=== PATIENT | female | born 1930 | race African-American/Black ===

== ENCOUNTER 2016-10-10 13:44 | Inpatient (IN) | payer MEDICARE, MEDICAID ==
[~2016-10-10] VITALS: Ht 162.6 cm; Wt 81.6 kg
[2016-10-10 15:11] VITALS: BP 146/86; BMI 30.9
[2016-10-10] MEDS ORDERED: LASIX40 MG PO (15:39)
[2016-10-10] MEDS ORDERED: METOPROLOL TART25 MG PO (15:39)
[2016-10-10] MEDS ORDERED: KLOR-CON M2020 MEQ PO (15:40)
--- NOTE | 2016-10-10 16:36 | NUR ---
BEDSIDE NURSING SWALLOW EVALUATION COMPLETED. THIN LIQUID TRIED, PATIENT SWALLOWED WITHOUT DIFFICULTY, NO COUGHING. 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 NO SIGNS OF ASPIRATION. NO COUGHING. NO SIGNS OF DISTRESS.
--- NOTE | 2016-10-10 18:40 | NUR ---
SAID TO GIVE 60MG OF LOVENOX AT 2100. NOTIFIED THAT I GAVE HER 40MG OF LOVENOX AT 1730. HE STATED "GIVE THE 60MG TONIGHT ANYWAYS." I STATED "TONIGHT AT 2100?" HE STATED "YES."
[2016-10-10 19:00] VITALS: BP 136/80
--- NOTE | 2016-10-10 19:35 | NUR ---
PATIENT RESTING IN BED AND DENIES NEEDS AT THIS TIME. ASSESSMENT AND VITALS COMPLETED. BED IN LOWEST POSITION AND CALL LIGHT WITHIN REACH. ENCOURAGED THE PATIENT TO CALL IF SHE HAS NEEDS.
--- NOTE | 2016-10-10 20:05 | NUR ---
ASSISTED PATIENT ON AND OFF OF THE BEDPAN.
--- NOTE | 2016-10-10 20:16 | NUR ---
SPOKE WITH SPENCER, LABORER CHEMICAL PROCESSING ABOUT PULLING LOVENOX FOR PATIENT.
--- NOTE | 2016-10-10 22:30 | NUR ---
SPOKE WITH CADENCE FOOD SERVICE EMPLOYEE ABOUT PULLING 60MG LOVENOX.
[2016-10-11] VITALS (7 sets, daily range): BP systolic 131–148; BP diastolic 82–113; Ht 162.6 cm; Wt 81.6 kg
[2016-10-11 15:08] LABS: ANION GAP 15.1 mmol/L (8-16); CARBON DIOXIDE 24.4 mmol/L (21.0-32.0); CREATININE - SERUM 0.9 mg/dL (0.6-1.3); POTASSIUM - SERUM 3.5 mmol/L (3.5-5.1)
--- NOTE | 2016-10-11 21:16 | NUR ---
PATIENT RESTING IN BED. ALERT AND ORIENTED. NO SIGNS OF DISTRESS NOTED. SCHEDULED MEDS GIVEN. SHIFT ASSESSMENT COMPLETED. DENIES ANY NEEDS AT THIS TIME. BED LOW. CALL LIGHT IN REACH
[2016-10-12 04:00] VITALS: BP 146/83
[2016-10-12 05:51] LABS: EOSINOPHILS 2.3 % (0-7); HEMATOCRIT 38.6 % (36.0-48.0); HEMOGLOBIN 12.6 g/dL (12-16); IMMATURE GRANULOCYTES 0.2 % (0-5); LYMPHOCYTES 31.8 % (15-50); MCH 28.7 pg (26.0-34.0); MCHC 32.6 g/dL (31.0-37.0); MCV 87.9 fL (80.0-100.0); MEAN PLATELET VOLUME 11.6 fL (7.4-10.4); MONOCYTES 11.9 % (2-11); NEUTROPHILS 52.8 % (40-80); PLATELET COUNT 249 10x3/uL (130-400); RBC 4.39 10x6/uL (4.00-5.40); RDW 13.9 % (11.5-14.5)
[2016-10-12 06:09] LABS: ANION GAP 14.1 mmol/L (8-16); CALCIUM 9.4 mg/dL (8.5-10.1); CARBON DIOXIDE 24.5 mmol/L (21.0-32.0); CREATININE - SERUM 0.8 mg/dL (0.6-1.3); POTASSIUM - SERUM 3.6 mmol/L (3.5-5.1)
[2016-10-12 08:16] VITALS: BP 157/86
--- NOTE | 2016-10-12 09:40 | NUR ---
Rehab Note- Acute Rehab Prescreen order received. The patient has [employer] insurance and will need a Pre Auth prior to an acute rehab screen. Will begin the Pre Auth process. Thank you for this referral! Ammy Campbell RN Clinical Liaison, [facility] Rehab/[place]
--- NOTE | 2016-10-12 11:14 | NUR ---
Rehab Note- Have started the Pre Auth process with [facility]. Have faxed clinicals for Alley Olmstead to review at [phone]. Reference #[id number]. Will await review and determiniation of acute rehab stay approval. Will continue to follow the patient at this time. Ammy Campbell RN Clinical Liaison, [facility] Rehab/[place]
[2016-10-12 11:48] VITALS: BP 134/74
--- NOTE | 2016-10-12 13:39 | EC ---
PATIENT:AMINAH AYALA DATE OF SERVICE: 10/10/16 SEX: F MEDICAL RECORD: [id number] DATE OF : 32 LOCATION:[facility] AGE OF PATIENT: 86 ADMISSION DATE: 10/10/16 REFERRING PHYSICIAN: INTERPRETING PHYSICIAN: REHAN REINA MD ECHOCARDIOGRAM REPORT ECHO CHARGES 4 ECHO COMPLETE CLINICAL DIAGNOSIS: CVA ECHOCARDIOGRAPHIC MEASUREMENTS (adult normal given) AC root (d.<3.7cm) 3.3 LV Septum d (<1.2 cm> 1.4 Valve Excursion 0.5 LV Septum (systole) 1.8 Left Atria (s.<4.0cm> 4.0 LVPW d(<1.2cm) 1.2 RV (d.<2.3cm) 2.4 LVPW (sytole) 1.8 LV diastole(<5.6CM) 4.5 MV E-F(>70mm/sec) LV systole 3.0 LVOT Diameter 1.7 MV exc.(>10mm) Est.ejection fraction (50-75%) Pericardial Effusion N DOPPLER: LVIT A E 189.0 LA RVSP 44.1 LVOT 70.0 AOP1/2T Asc. Ao 381 RVOT 78.0 RA PA 95.0 AV Gradient Peak 58.1 AV Mean 30.0 AV Area 0.3 MV Gradient Peak 13.1 MV Mean 5.4 MV Area COMMENTS: Tank Cleaner: Shira MCGOWAN ALTURAS Planting Machine Crewman:Migue Gay TAPE# PACS DATE OF SERVICE: 10/10/2016 Adequate 2D echo, color flow, spectral Doppler, and M-mode. LVH is present. LV internal dimensions are normal. Wall motion is normal. EF is greater than 55%. Aortic valve is calcified with restriction of leaflet motion. Peak gradient of 58 mmHg, putting this in moderate to severe range. The left atrium is normal at 4.0 cm. Mitral valve is thickened. Moderate MR. Right-sided chamber is grossly normal. Moderate TR. TRANSINT:[id number] Voice Confirmation ID: [id number] DOCUMENT ID: [id number] ECHOCARDIOGRAM REPORT [id number] AMINAH AYALA 10/12/2016 Edited to correct date of service, dmm. REHAN REINA MD at 1339 CC: [id number] DICTATION DATE: 10/11/16 0939 SUMMER ASSOCIATE: 10/11/16 1122 ADM IN [facility] [address] [place] [address]
[2016-10-12 15:20] VITALS: BP 155/110
--- NOTE | 2016-10-12 16:54 | NUR ---
OT NOTE: PT COMPLETED RUE PROM FOR INCREASED AROM. PT COMPLETED POSITIONING WITH MOD/MAX A . PT COMPLETED GROOMING TASK WITH MIN A. THANK YOU, HAI CHAVES/Zak
[2016-10-12 19:00] VITALS: BP 145/101
[2016-10-13] VITALS: BP 142/92
--- NOTE | 2016-10-13 03:25 | NUR ---
AIDS IN ROOM CLEANING PT UP FROM BOWEL MOVEMENT. PT HAS NO NEEDS AT THIS TIME. SIDE RAILS ARE UP X 2. BED IS IN LOWEST POSITION. CALL LIGHT IS WITHIN REACH.
[2016-10-13 04:00] VITALS: BP 131/87
[2016-10-13 05:21] LABS: BASOPHILS 0.6 % (0-2); EOSINOPHILS 1.6 % (0-7); HEMATOCRIT 39.2 % (36.0-48.0); HEMOGLOBIN 12.7 g/dL (12-16); IMMATURE GRANULOCYTES 0.3 % (0-5); LYMPHOCYTES 20.3 % (15-50); MCH 28.5 pg (26.0-34.0); MCHC 32.4 g/dL (31.0-37.0); MCV 87.9 fL (80.0-100.0); MEAN PLATELET VOLUME 11.8 fL (7.4-10.4); MONOCYTES 13.1 % (2-11); NEUTROPHILS 64.1 % (40-80); PLATELET COUNT 242 10x3/uL (130-400); RBC 4.46 10x6/uL (4.00-5.40); RDW 13.8 % (11.5-14.5); WBC 6.8 10x3/uL (4.8-10.8)
[2016-10-13 05:43] LABS: ALBUMIN 3.1 g/dL (3.4-5.0); ANION GAP 11.7 mmol/L (8-16); BILIRUBIN - TOTAL 0.8 mg/dL (0.2-1.3); CARBON DIOXIDE 25.7 mmol/L (21.0-32.0); CREATININE - SERUM 0.8 mg/dL (0.6-1.3); POTASSIUM - SERUM 3.4 mmol/L (3.5-5.1); PROTEIN - SERUM 7.6 g/dL (6.4-8.2)
[2016-10-13 07:55] VITALS: BP 133/89
--- NOTE | 2016-10-13 08:24 | NUR ---
AWAKE AND ALERT. ORIENTED TO SELF. DIFFICULT TO ASSESS ORIENTATION THOUGHTS GET JUMBLED UP. SHE CAN GIVE AN APPROPRIATE ANSWER AFTER A TIME. LUNGS ARE CLEAR BUT DIMINISHED THROUGHOUT, OCCASSIONAL DRY COUGH NOTED. SKIN IS INTACT WITHOUT REDNESS. IV TO LEFT HAND IS PATENT WTIHOUT REDNESS AT INSERTION SITE. BREAKFAST TRAY AT BEDSIDE BUT PATIENT REFUSED TO EAT EVEN WITH ASSIST. ALSO REFUSED OFFERS OF ALTERNATIVE MEALS. ASSISTED WITH MENU CHOICES PER STAFF.
--- NOTE | 2016-10-13 09:50 | NUR ---
Patient Name: AMINAH AYALA Admission Status: Elective Accout number: [id number] Admission Date: 10-10-2016 : 1932 Admission Diagnosis:CEREBRAL INFARCTION, UNSPECIFIED Attending: VENKAT Current LOS: 3 Anticipated DC Date: 10-14-2016 Planned Disposition: Inpatient Rehab Facility Primary Insurance: [employer] MEDICARE ADV Discharge Planning Comments: CM MET WITH PATIENT REGARDING D/C NEEDS AND PLANS. PATIENT STATED SHE LIVES WITH HER DAUGHTER (SOL) AND SHE WILL DRIVE HER HOME AT DISCHARGE. PATIENT STATED SHE HAS NO STEPS OR STAIRS AT HER HOME. PATIENTS PCP IS DR. MONTES AT [place] AND PHARMACY IS [facility]. PATIENT STATED SHE IS INDEPENDENT WITH HER CARE AND HAS A WALKER, WHEELCHAIR, SHOWER CHAIR, AND BS COMMODE AT HER HOME. PATIENT HAS AN IP REHAB REFERRAL. IF PATIENT IS NOT ACCEPTED TO IP REHAB SHE WILL CHOOSE A SNF AT THAT TIME. CM WILL CONTINUE TO FOLLOW PATIENT WITH D/C NEEDS AND PLANS. PCP DR. MONTES IN [facility] [phone] SOL WATSON (DAUGHTER) [phone] Maintenance Manager: Marion Kebede Is the patient Alert and Oriented? Yes 0 * How many steps to enter\exit or inside your home? 2 0 * PCP DR. MONTES IN [facility] 0 * Pharmacy [facility] [phone] * Preadmission Environment Home with Family 0 * ADLs Independent 0 * Equipment Bedside Commode Shower Chair Walker Wheelchair 0 * List name and contact numbers for known caregivers / representatives who currently or will assist patient after discharge: SOL WATSON (DAUGHTER) [phone] * Community resources currently utilized None 0 * Additional services required to return to the preadmission environment? Yes 0 * Can the patient safely return to the preadmission environment? Yes 0 * Has this patient been hospitalized within the prior 30 days at any hospital? No 0 Grand Total: 0
--- NOTE | 2016-10-13 10:02 | NUR ---
ASSISTED WITH BEDPAN. HAD LARGE SOFT BM. SKIN CARE PER STAFF. REPOSITIONED IN BED FOR COMFORT. DENIES NEEDS.
[2016-10-13 11:17] VITALS: BP 129/86
--- NOTE | 2016-10-13 12:53 | NUR ---
ATE ONLY A SMALL AMOUNT OF LUNCH PER FAMILY. REQUESTED AND GIVEN 650MG TYLENOL PO FOR C/O RIGHT ARM, BACK AND STOMACH PAIN LEVEL 9. WILL MONITOR.
[2016-10-13 14:55] VITALS: BP 128/74
--- NOTE | 2016-10-13 15:00 | NUR ---
RESTING QUIETLY IN BED AFTER WORKING WITH PT. REPORTS PAIN IMPROVED WITH USE OF TYLENOL.
--- NOTE | 2016-10-13 16:05 | NUR ---
CM REASSESSMENT NOTE: PATIENT IS DISCHARGING TODAY TO IP REHAB AND FAMILY HAS BEEN NOTIFIED.
--- NOTE | 2016-10-13 16:33 | NUR ---
OT NOTE: PT COMPLETED RUE PROM TO FACILITATE FUNCTIONAL RETURN. PT COMPLETED RUE RIGOBERTO POSITIONING TO MAINTAIN JOINT INTEGRITY. PT COMPLETED BED MOB WITH VIKTOR [place] THANK YOU, HAI CHAVES/Zak
[2016-10-13] MEDS ORDERED: LIPITOR40 MG PO (17:06)
[2016-10-13] MEDS ORDERED: XARELTO10 MG PO (17:11)
--- NOTE | 2016-10-13 18:12 | NUR ---
REPORT CALLED TO [facility]. ALL QUESTIONS ANSWERED. PATIENT AND DAUGHTER SIGNED D/C PAPERS FOR REHAB. SL TO LEFT HAND D/C WITH CATHETER INTACT. TRANSFERRED TO ROOM 1117A VIA .
== END 2016-10-13 18:13 | DRG 65 ==
LOC: D.MS 13:44
PROVIDERS: Family Medicine; ADMIT Family Medicine
DX: I63.512 Cerebral infarction due to unspecified occlusion or stenosis of left middle cerebral artery (principal); G81.91 Hemiplegia, unspecified affecting right dominant side; R47.02 Dysphasia; I10 Essential (primary) hypertension; I48.91 Unspecified atrial fibrillation; I25.10 Atherosclerotic heart disease of native coronary artery without angina pectoris; R40.2143 Coma scale, eyes open, spontaneous, at hospital admission; R40.2363 Coma scale, best motor response, obeys commands, at hospital admission; R40.2253 Coma scale, best verbal response, oriented, at hospital admission; I65.22 Occlusion and stenosis of left carotid artery

== ENCOUNTER 2016-10-13 19:13 | Inpatient (IN) | payer MEDICARE, MEDICAID ==
[~2016-10-13] VITALS: Ht 162.6 cm; Wt 76.2 kg
--- NOTE | 2016-10-13 11:15 | NUR ---
PT INCONTINENCE, CHANGE PINK PAD AND LINEN.
--- NOTE | 2016-10-13 18:25 | NUR ---
recieved on rehab/wc,room 1119F.CL IN REACH.
[~2016-10-13 19:13] MED LIST: KLOR-CON M2020 MEQ PO; LASIX40 MG PO; LIPITOR40 MG PO; METOPROLOL TART25 MG PO; XARELTO10 MG PO
--- NOTE | 2016-10-14 00:15 | NUR ---
DAUGHTER ACCOMPANY WITH PT AT BEDSIDE.
[2016-10-14 00:24] VITALS: BMI 28.9
--- NOTE | 2016-10-14 00:45 | NUR ---
ADMISSION ASSESSMENT COMPLETE. PATIENT DENIES NEEDS. DAUGHTER STAYING WITH PATIENT FOR SAFETY REASONS.
--- NOTE | 2016-10-14 03:41 | NUR ---
PT REST QUIETLY IN BED, EYE CLOSE, BED LOW,CALL LIGHT WITHIN REACH.
--- NOTE | 2016-10-14 04:59 | NUR ---
PT INCONTINENCE, HAS WATERLY STOOL, GOWN AND LINEN CHANGED.
[2016-10-14 05:35] LABS: BASOPHILS 0.3 % (0-2); EOSINOPHILS 1.2 % (0-7); HEMATOCRIT 40.2 % (36.0-48.0); HEMOGLOBIN 13.2 g/dL (12-16); IMMATURE GRANULOCYTES 0.4 % (0-5); LYMPHOCYTES 21.5 % (15-50); MCH 28.8 pg (26.0-34.0); MCHC 32.8 g/dL (31.0-37.0); MCV 87.8 fL (80.0-100.0); MEAN PLATELET VOLUME 11.6 fL (7.4-10.4); MONOCYTES 10.7 % (2-11); NEUTROPHILS 65.9 % (40-80); PLATELET COUNT 243 10x3/uL (130-400); RBC 4.58 10x6/uL (4.00-5.40); RDW 13.8 % (11.5-14.5); WBC 7.4 10x3/uL (4.8-10.8)
[2016-10-14 05:48] LABS: ANION GAP 14.8 mmol/L (8-16); CALCIUM 9.4 mg/dL (8.5-10.1); CARBON DIOXIDE 21.9 mmol/L (21.0-32.0); CREATININE - SERUM 0.8 mg/dL (0.6-1.3); POTASSIUM - SERUM 3.7 mmol/L (3.5-5.1)
--- NOTE | 2016-10-14 06:47 | NUR ---
RESTING QUIETLY IN BED CALL LIGHT IN REACH
[2016-10-14 10:36] VITALS: BP 136/93
[2016-10-14 11:02] VITALS: Ht 162.6 cm; Wt 76.2 kg
--- NOTE | 2016-10-14 12:55 | NUR ---
SITTING IN W/C IN ROOM EATING LUNCH. USES LUE TO FEED SELF. DENIES NEEDING ANY ASST.
--- NOTE | 2016-10-14 14:41 | NUR ---
RESTING QUIETLY IN ROOM.
--- NOTE | 2016-10-14 17:53 | NUR ---
SITTING UP IN BED EAT IN SUPPER. DENIES NEEDS OR C/O. CALL LIGHT IN REACH
[2016-10-14 19:10] VITALS: BP 132/64
--- NOTE | 2016-10-14 19:45 | NUR ---
ASSISTED PT TO BATHROOM AND BACK TO BED.
--- NOTE | 2016-10-15 01:08 | NUR ---
PT REST QUIETLY IN BED, EYE CLOSE, BED LOW.
[2016-10-15 07:56] VITALS: BP 110/86
--- NOTE | 2016-10-15 14:15 | NUR ---
RESTING QUIETLY IN BED. FAMILY AT BEDSIDE TALKING WITH PT. GUTIERREZ FLACCID, RLE WEAK. CAN WALK WITH WALKER AND MIN ASST. STILL CONFUSED.
[2016-10-15 19:27] VITALS: BP 126/84
--- NOTE | 2016-10-15 19:50 | NUR ---
PT. IN BED WITH HOB UP FOR COMFORT. ASSESSMENT COMPLETED. PT. REPOSITIONED TO GET HER UP IN THE BED AND REPOSITIONED TO COMFORT WITH PILLOW UNDER RUE FOR SUPPORT AND PT. ALSO REQUESTED A PILLOW UNDER HER LEFT UPPER THIGH/BUTTOCK AREA. NO VOICED NEEDS AT THIS TIME AND CALL LIGHT WITHIN REACH.
--- NOTE | 2016-10-15 23:15 | NUR ---
PT. FOUND SUPINE ON FLOOR WITH FEET FACING THE WALL. ASSESSED FOR ANY VISIBLE INJURY AND NONE FOUND. PT. DENIES ANY NEW PAIN. CHANGED OUT BEDS SO THAT PT. WILL BE IN A BED WITH A BUILT-IN BED ALARM. PT. TRANSFERRED FROM FLOOR TO BED BY 2 MHT'S AND NO INJURIES OBSERVED. PT. POSITIONED TO COMFORT, RE-ORIENTED USE OF CALL LIGHT. PT. ABLE TO CORRECTLY USE CALL LIGHT WITHOUT PROBLEM.
--- NOTE | 2016-10-16 01:35 | NUR ---
PT. REQUESTING SOMETHING FOR PAIN IN HER RIGHT SHOULDER. THIS PAIN IS NEW PT. SAYS IN THIS AREA. XRAYS WILL BE ORDERED. EXPLAINED TO PT. THE PURPOSE FOR THE XRAYS AND PT. UNDERSTANDS. ALSO AT THIS POINT PT. HAS NO PAIN MEDICATION ORDERS. CALL LIGHT WITHIN REACH.
--- NOTE | 2016-10-16 02:30 | NUR ---
RADIOLOGY TECHS HAVE BEEN UP TWICE TO GET SHOULDER XRAYS AND HAVE NOW TAKEN HER TO THE RADIOLOGY DEPT. TO GET THE XRAYS COMPLETED.
--- NOTE | 2016-10-16 03:05 | NUR ---
PT. IN BED WITH HOB UP FOR COMFORT WITH EYES CLOSED AND RESP. EVEN. CALL LIGHT WITHIN REACH.
--- NOTE | 2016-10-16 06:38 | NUR ---
PT. IN BED LYING ON HER RIGHT SIDE WITH EYES CLOSED AND RESP. EVEN. CALL LIGHT IS WITHIN REACH.
--- NOTE | 2016-10-16 08:00 | NUR ---
SHIFT ASSMT COMPLETED.DENIES NEEDS.RE-INSTRUCTED TO USE CALL LIGHT FOR ASSISTANCE.BREAKFAST GIVEN.ALARM ON.
[2016-10-16 09:28] VITALS: BP 138/87
--- NOTE | 2016-10-16 12:00 | NUR ---
EATING LUNCH.CL IN REACH.ALARM ON.
--- NOTE | 2016-10-16 16:00 | NUR ---
FAMILY VISITING.CL IN REACH.
[2016-10-16 19:28] VITALS: BP 132/86
--- NOTE | 2016-10-16 20:00 | NUR ---
PT IN BED WITH HOB UP FOR COMFORT. WATCHING TV. NO 02. NO IV. TELEMETRY. MEDS WHOLE IN APPLESAUCE. RIGHT ARM FLACCID. RL EXT. WEAK. MIN. ASSIT. CONTINENT. PT STATES SHE HAS A PAIN LEVEL OF 9/10 IN HER KNEE. BED ALARM AND HEATHER ALARM ON. BED IN LOWEST POSITION AND CALL LIGHT WITHIN REACH.
--- NOTE | 2016-10-17 | NUR ---
PT IN BED WITH HOB UP FOR COMFORT. EYES CLOSED. CHEST RISING AND FALLING. BED IN LOWEST POSITION AND CALL LIGHT WITHIN REACH.
--- NOTE | 2016-10-17 03:30 | NUR ---
pt standing at side of bed, alarm sounding, pt not sure of why she is standing at bed when asked, directly asked pt if she needed to void and she stated yes. pt did check to see w/c was locked prior to transfer. pt sba assist with toilet transfer, incontinent of urine.
--- NOTE | 2016-10-17 08:00 | NUR ---
SHIFT ASSMT COMPLETED.DENIES NEEDS.POS UP OOB TO WC FOR BREAKFAST.MEAL SET-UP GIVEN.ALARM ON.
[2016-10-17 08:18] VITALS: BP 118/84
--- NOTE | 2016-10-17 09:58 | RHP ---
PATIENT: AMINAH AYALA MEDICAL RECORD: [id number] ACCOUNT: [id number] LOCATION:[id number] : 32 ADMISSION DATE: 10/13/16 REHABILITATION HISTORY AND PHYSICAL EXAMINATION POST ADMISSION PHYSICIAN EXAMINATION DATE OF ADMISSION: 10/13/2016 ADMITTING DIAGNOSES: Left middle cerebral artery infarct. HISTORY OF PRESENT ILLNESS: The patient is an 86-year-old gentleman admitted to the inpatient rehab with a left middle cerebral artery infarct. She was transferred from [facility] with a right hemiparesis. PCP spoke with the ER doctor who reported head CT was initially negative. The patient clinically with acute CVA and right hemispheric involvement. Daughter reports no history of CVA, though she does have coronary artery disease and status post coronary artery bypass grafting, history of hypertension and arrhythmia, but not known to be but could be AFib, not on any blood thinners or even aspirin. She did see cardiology at [facility] last week and had a heart cath, which was clean. She is supposed to have an ablation done in [place] at [facility] later next month. Daughter reports that before this a.m., she was fully independent with ADLs and mobility. Currently, she is awake and cooperative. She demonstrates a predominantly expressive dysphagia. She has problems with word finding, mostly monosyllabic speech errors, but comprehension is nicely intact. Her tongue and palate are midline. Sensation is relatively spared, but hypoesthesia of the right as well. Power is 0/5 in the right upper extremity, 3/5 in the right lower extremity. She plans to return back home with her daughter, hopefully after discharge. COMORBIDITIES: In this patient include oropharyngeal dysphagia, Broca aphasia, right hemiparesis, expressive dysphagia, coronary artery disease, essential hypertension, atrial fibrillation, acute CVA and carotid stenosis. PAST MEDICAL HISTORY: Significant for problems with of hard of hearing. He has got a history of hypertension, open-heart surgery and constipation. PAST SURGICAL HISTORY: Includes hysterectomy, right knee surgery, open-heart surgery, hysterectomy and CABG. ALLERGIES: PENICILLIN, TOBRAMYCIN, COZAAR AND MELOXICAM. CURRENT MEDICATIONS: Include Xarelto 10 mg daily, furosemide 40 mg daily. She is on Lipitor 40 mg daily, potassium 20 mEq b.i.d., Lopressor 12.5 mg b.i.d., polyethylene glycol 17 g in 8 ounces of water daily as needed. HABITS: No alcohol or tobacco use. FAMILY HISTORY: Noncontributory. SOCIAL HISTORY: The patient hopes to return back home once again with her daughter. REVIEW OF SYSTEMS: Difficult to obtain. GENERAL: She does complain of weakness and fatigue. HEENT: Denies cold, cough, or congestion. CARDIOVASCULAR: Denies any chest pain. HISTORY AND PHYSICAL [id number] LUCYAMINAH PHYSICAL EXAMINATION: VITAL SIGNS: Stable, afebrile. GENERAL: Elderly female in no acute distress, alert upon exam. HEENT: Normocephalic, atraumatic. Mucosa moist. NECK: Supple, with no lymphadenopathy. LUNGS: Clear at this time. HEART: Irregular rate and rhythm. ABDOMEN: Benign. EXTREMITIES: No clubbing, cyanosis or edema. NEUROLOGIC: She does have weakness in the right upper extremity greater than her lower extremity. LABORATORY DATA: Her white count is 7.4, H&H of 13 and 40, and platelet count was noted to be 243. Sodium is 140, potassium 3.7, BUN and creatinine of 13 and 0.8 and blood sugar is noted to be 128. ASSESSMENT: This is an 86-year-old female patient admitted to rehab with a working diagnosis of left middle cerebral artery infarct with complications of Broca aphasia. The patient has potential to make improvement. We instituted the following multidisciplinary therapies including, but not limited to, physical, occupational, respiratory, speech, nutritional services, prosthetics and orthotics. Given her complex condition and risk for more complications, rehabilitation services cannot be provided at a lower level of care such as a shelter facility. PLAN: 1. Admit to [facility] rehab for intensive inpatient therapy to include the following disciplines: A. Physical therapy to improve gait, all transfer skills and bed mobility to a modified independent level. B. Occupational therapy to improve activities of daily living to a modified independent level. C. Case management to assist with discharge planning and placement options. E. Rehabilitation nursing to assist in monitoring the patient's underlying medical conditions and to assist with any type of bowel or bladder management. 2. The patient's current medication and medical care will be continued. 3. The patient will be placed on standard fall precautions. 4. We will work with strength in her upper extremity and hopefully get her back to her daughter who will be her main caregiver after this. TRANSINT:[id number] Voice Confirmation ID: [id number] DOCUMENT ID: [id number] DAVI notes whether there has been none or any medical/functional change since admission: - DAVI attests patient continues to be appropriate for IRF: - HISTORY AND PHYSICAL [id number] AMINAH AYALA SCOTT MD at 0958 CC: [id number] DICTATION DATE: 10/14/16 0859 ELEVATOR ADJUSTER: 10/14/16 1208 ADM IN [place] [id number] [place] [address]
--- NOTE | 2016-10-17 12:00 | NUR ---
UP TO SIDE OF BED FOR MEAL.CL IN REACH.
[2016-10-17 20:00] VITALS: BP 122/92
--- NOTE | 2016-10-17 20:00 | NUR ---
PT IN BED WITH HOB UP FOR COMFORT. VISITORS IN ROOM. NO 02. NO IV. TELEMETRY. MEDS WHOLE IN APPLESAUCE. RIGHT ARM FLACCID. RL EXT. WEAK. MIN. ASSIT. CONTINENT. PAIN LEVEL OF 9/10 IN BACK FROM FALL. BED ALARM AND HEATHER ALARM ON. BED IN LOWEST POSITION AND CALL LIGHT WITHIN REACH.
--- NOTE | 2016-10-17 23:26 | NUR ---
PT. IN BED WITH HOB SLIGHTLY ELEVATED. EYES ARE CLOSED AND RESP. EVEN. CALL LIGHT WITHIN REACH.
--- NOTE | 2016-10-18 | NUR ---
PT IN BED WITH HOB UP FOR COMFORT. RESTING QUIETLY. CHEST RISING AND FALLING. BED IN LOWEST POSITION AND CALL LIGHT WITHIN REACH.
--- NOTE | 2016-10-18 04:00 | NUR ---
PT IN BED WITH HOB UP FOR COMFORT. RESTING QUIETLY. RESPIRATIONS EVEN AND UNLABORED. BED IN LOWEST POSITION AND CALL LIGHT WITHIN REACH.
[2016-10-18 07:05] LABS: BASOPHILS 0.6 % (0-2); EOSINOPHILS 2.2 % (0-7); HEMATOCRIT 41.1 % (36.0-48.0); HEMOGLOBIN 13.8 g/dL (12-16); IMMATURE GRANULOCYTES 0.5 % (0-5); LYMPHOCYTES 29.4 % (15-50); MCH 29.6 pg (26.0-34.0); MCHC 33.6 g/dL (31.0-37.0); MONOCYTES 14.5 % (2-11); NEUTROPHILS 52.8 % (40-80); PLATELET COUNT 258 10x3/uL (130-400); RBC 4.67 10x6/uL (4.00-5.40); RDW 13.8 % (11.5-14.5); WBC 6.5 10x3/uL (4.8-10.8)
[2016-10-18 07:20] LABS: ANION GAP 16.3 mmol/L (8-16); CALCIUM 9.7 mg/dL (8.5-10.1); CREATININE - SERUM 0.8 mg/dL (0.6-1.3); POTASSIUM - SERUM 4.3 mmol/L (3.5-5.1)
--- NOTE | 2016-10-18 07:49 | NUR ---
PT UP EATING BREAKFAST, DENIES NEEDS.
[2016-10-18 07:51] VITALS: BP 135/92
--- NOTE | 2016-10-18 10:44 | NUR ---
PATIENT IN REHAB ROOM. WORKING WITH OCCUPATIONAL THERAPIST. C/O OF BACK PAIN. PRN NORCO GIVEN.
--- NOTE | 2016-10-18 12:56 | NUR ---
PATIENT MOVED TO ROOM 1113A. CLOSER TO NURSING STATION DUE TO PATIENTS CONFUSION.
--- NOTE | 2016-10-18 15:22 | NUR ---
PATIENT HAS VISITORS IN ROOM. TURNED SUPERVISOR GRIPS LIGHT FOR PATIENT AND STATED THAT PATIENT NEEDED TO USE THE BATHROOM. THIS NURSE HELPED PATIENT TO THE BATHROOM. MOD ASST FROM BED TO TOILET. PATIENT NEEDED SOME HELP PULLING DOWN PANTS AND BRIEFS.
--- NOTE | 2016-10-18 17:50 | NUR ---
PATIENT SITTING UP IN WHEELCHAIR AT BEDSIDE TO EAT SUPPER. HEATHER ALARM ON.
--- NOTE | 2016-10-18 19:25 | NUR ---
PT RECEIVED SITTING ON SIDE OF BED BEGINNING TO LYE DOWN. NO CONCERNS NOTED. CALL LIGHT IN REACH.
[2016-10-18 22:18] VITALS: BP 108/62
--- NOTE | 2016-10-19 00:33 | NUR ---
PT IN BED WITH EYES CLOSED AND CHEST RISING. NO SIGN/SYMPTOMS OF DISTRESS NOTED. CALL LIGHT IN REACH. WILL CONTINUE TO OBSERVE.
--- NOTE | 2016-10-19 02:25 | NUR ---
PT IN BED WITH EYES CLOSED AND CHEST RISING. NO CONCERNS NOTED. CALL LIGHT IN REACH.
--- NOTE | 2016-10-19 06:43 | NUR ---
PT IN BED WITH EYES OPEN. VOICES PAIN TO BACK AT 8/10 WITH PRN PAIN MEDICATION GIVEN PER JUL. NO OTHER CONCERNS NOTED. CALL LIGHT IN REACH.
--- NOTE | 2016-10-19 07:17 | NUR ---
INTRODUCED SELF TO PT, PT STATES NO NEEDS AT THIS TIME, REHAN CONTINUE TO MONITOR, CALL LIGHT WITHIN REACH.
--- NOTE | 2016-10-19 08:08 | NUR ---
PT EATING BREAKFAST, DENIES NEEDS. CL IN REACH.
[2016-10-19 08:24] VITALS: BP 113/62
[2016-10-19 08:33] VITALS: BP 108/58
--- NOTE | 2016-10-19 09:43 | NUR ---
MORNING MEDICATION GIVEN, PT TOLERATED WELL, ASSISTED PT TO RESTROOM AND BACK TO BED WITH MIN TO MOD ASSISTANCE, WILL CONTINUE TO MONITOR, CALL LIGHT WITHIN REACH.
--- NOTE | 2016-10-19 12:10 | NUR ---
PT SITTING AT BEDSIDE IN WHEELCHAIR VISITING WITH FAMILY, PT STATES NO NEEDS AT THIS TIME, WILL CONTINUE TO MONITOR, CALL LIGHT WITHIN REACH.
--- NOTE | 2016-10-19 13:45 | NUR ---
PT RESTING IN BED, RESPIRATIONS EVEN, FAMILY AT BEDSIDE, WILL CONTINUE TO MONITOR, CALL LIGHT WITHIN REACH.
--- NOTE | 2016-10-19 15:01 | NUR ---
NUTRITION MONITORING & EVAL CHART REVIEWED. PT IN THERAPY. 75% INTAKE REG DIET. ENSURE WITH MEALS. RD FOLLOWING
[2016-10-19 18:54] VITALS: BP 111/58
--- NOTE | 2016-10-19 19:30 | NUR ---
PT RECEIVED IN BED WITH EYES CLOSED AND CHEST RISING. EASILY AROUSED TO VERBAL STIMULI. NO CONCERNS OR COMPLAINTS AT THIS TIME. CALL LIGHT IN REACH.
--- NOTE | 2016-10-19 23:00 | NUR ---
PT IN BED WITH EYES CLOSED AND CHEST RISING. NO SIGN/SYMPTOMS OF DISTRESS NOTED. CALL LIGHT IN REACH.
--- NOTE | 2016-10-20 02:27 | NUR ---
PT IN BED WITH EYES CLOSED AND CHEST RISING. NO CONCERNS NOTED. CALL LIGHT IN REACH.
--- NOTE | 2016-10-20 07:30 | NUR ---
UP OOB TO BATHROOM.CL IN REACH.ALARMS SET.
--- NOTE | 2016-10-20 08:15 | NUR ---
PT UP IN BED EATING BREAKFAST TOLERATING WELL WILL MONITER
--- NOTE | 2016-10-20 11:01 | NUR ---
PATIENT ADMITTED TO REHAB FROM ACUTE FLOOR. PATIENT PCP IS DR. MONTES IN [place]. SHE HAS A WALKER, WHEELCHAIR, SHOWER CHAIR AND BEDSIDE COMMODE.[facility] IS HER PHARMACY. SHE LIVES WITH HER DAUGHTER, SOL AND SHE WILL DISCHARGE BACK HOME WITH HER. TENATIVE DISCHARGE DATE IS 11/01/16. WILL CONTINUE TO FOLLOW WITH PATIENT
--- NOTE | 2016-10-20 16:49 | NUR ---
PT RESTING IN BED WITH EYES OPEN CALL LIGHT IN REACH NO PROBLEMS WILL MONITER
--- NOTE | 2016-10-20 19:20 | NUR ---
SET OFF BED ALARM ATTEMPTING OOB. ASSISTED HER UP TO BR COMMODE TO URINATE, AND THEN BACK TO BED. REMINDED HER TO USE THE CALL LIGHT AND NOT TO ATTEMPT UP BY HERSELF. SR UP X3. INTERNAL BED ALARM AND HEATHER ALARMS ARE ARMED DUE TO THE SPEED WITH WHICH PATIENT GETS UP WHEN INTERNALLY MOTIVATED. REMAINS VERY UNSAFE DUE TO IMPAIRED GAIT, IMPAIRED COGNITION AND FLACCID RIGHT ARM.
--- NOTE | 2016-10-20 21:15 | NUR ---
RESTING IN BED, EYES CLOSED.
[2016-10-20 22:15] VITALS: BP 117/81
--- NOTE | 2016-10-20 22:15 | NUR ---
ASSISTED PATIENT UP TO BR SHE REPORTED URGENCY WHEN I ENTERED HER ROOM. ON RETURN TO BED ASSESSMENT AND HS MEDS WERE COMPLETED.
--- NOTE | 2016-10-21 00:10 | NUR ---
PATIENT AWAKE. DENIES NEEDS.
--- NOTE | 2016-10-21 02:15 | NUR ---
FOUND PATIENT AWAKE ON ROUNDS. SAYS SHE NEEDS TO, "GET UP AND GET OUT OF HERE." DENIES NEEDS TO TOILET. REMINDED HER SHE IS IN THE HOSPITAL AND ALSO THE EARLY HOUR. SR REMAINS UP X3 WITH INTERNAL BED ALARM AND HEATHER BED ALARM ARMED.
--- NOTE | 2016-10-21 04:45 | NUR ---
IN BED, EYES CLOSED. RESTING QUIETLY.
--- NOTE | 2016-10-21 06:20 | NUR ---
ASSISTED PATIENT UP TO BR TO URINATE AND SUBSEQUENTLY TO CHANGE HER GOWN TO PANTS AND A TOP. INITIALLY FOUND PATIENT IN BED WITH GOWN STRIPPED OFF AND NECK LANYARD FOR TELEMETRY UNIT POUCH UNTIED AND LYING LOOSELY IN HER BED. ON COMPLETION OF TOILETING AND DRESSING, PATIENT WAS RETURNED TO BED. HOB UP 30 DEGREES. INTERNAL BED- AND HEATHER BED ALARMS ARE ARMED WITH SR UP X3 FOR SAFETY. WATER AND CALL LIGHT ARE IN REACH.
--- NOTE | 2016-10-21 08:15 | NUR ---
PT RESTING IN BED WITH EYES OPEN CALL LIGHT IN REACH NO PROBLEMS WILL MONITER
--- NOTE | 2016-10-21 11:30 | NUR ---
IN THERAPY,SLEEPY BUT SHANTA.
--- NOTE | 2016-10-21 11:56 | NUR ---
CLINICALS FAXED TO [facility] AT , AUTH. # [id number] WITH CONFORMATION RECIEVED
[2016-10-21 11:58] VITALS: BP 122/69
--- NOTE | 2016-10-21 15:33 | NUR ---
PT RESTING IN BED WITH EYES OPEN CALL LIGHT IN REACH WILL MONITER
[2016-10-21 19:30] VITALS: BP 106/72
--- NOTE | 2016-10-21 20:00 | NUR ---
PT IN BED WITH HOB UP FOR COMFORT. RESTING QUIETLY. TV ON. NO 02. NO IV. TELEMETRY. MEDS WHOLE IN APPLESAUCE. RIGHT ARM FLACCID. RIGHT LEG WEAK. BED AND HEATHER ALARM. BED IN LOWEST POSITION AND CALL LIGHT WITHIN REACH.
--- NOTE | 2016-10-22 | NUR ---
PT IN BED WITH HOB UP FOR COMFORT. EYES CLOSED. CHEST RISING AND FALLING. BED IN LOWEST POSITION AND CALL LIGHT WITHIN REACH.
--- NOTE | 2016-10-22 01:05 | NUR ---
MONITORING STATION CALLED TO REPORT PATIENT OFF MONITOR. REPLACED 2 ELECTRODE PATCHES. NOW BACK ON MONITOR. CONTINUES IN [facility].
--- NOTE | 2016-10-22 05:15 | NUR ---
ASSISTED PT WITH SHOWER.
[2016-10-22 08:36] VITALS: BP 132/78
--- NOTE | 2016-10-22 09:02 | NUR ---
PT AM MEDS ADMINISTERED. PT DENIES NEEDS.
--- NOTE | 2016-10-22 09:45 | NUR ---
PT REQ AND REC'D PRN PAIN MEDICATION WHILE IN THERAPY. WCTM.
--- NOTE | 2016-10-22 13:50 | NUR ---
PT PARTICIPATING IN THERAPY. TOLERATING WELL. DENIES NEEDS.
--- NOTE | 2016-10-22 19:35 | NUR ---
PT RECEIVED IN BED WITH EYES OPEN WATCHING TV. NO COMPLAINTS OR CONCERNS NOTED. CALL LIGHT IN REACH.
--- NOTE | 2016-10-22 22:49 | NUR ---
PT IN BED WITH EYES OPEN WATCHING TV. RECEIVED HS MEDICATIONS WITHOUT DIFFICULTY. NO CONERNS NOTED. CALL LIGHT IN REACH.
[2016-10-22 23:09] VITALS: BP 105/70
--- NOTE | 2016-10-22 23:44 | NUR ---
[employer] INSTRUMENT MAKER CALLED AND STATED PT HAD A RUN OF 6 VTACH, IS BACK IN NORMAL RHYTHM. PT AWAKE, DENIES ANY CHEST PALPITATIONS, SOB, OR FEELING ANY DIFFERENT.
--- NOTE | 2016-10-23 03:05 | NUR ---
PT IN BED WITH EYES OPEN WATCHING TV. NO CONCERNS OR COMPLAINTS MADE KNOWN AT THIS TIME. CALL LIGHT IN REACH.
--- NOTE | 2016-10-23 05:57 | NUR ---
PT IN BED WATCHING TV. NO COMPLAINTS OR CONCERNS NOTED. CALL LIGHT IN REACH.
[2016-10-23 08:00] VITALS: BP 124/80
--- NOTE | 2016-10-23 08:03 | NUR ---
PATIENT IS PLEASANTLY CONFUSED. RESTING IN BED. CALL LIGHT WITHIN REACH. BED ALARM ON. TELEMETRY IN PLACE
--- NOTE | 2016-10-23 10:13 | NUR ---
PATIENT HELPED TO BATHROOM. MOD ASST FROM BED TO WHEELCHAIR AND WHEELCHAIR ONTO TOILET. PATIENT NEEDED HELP WITH PULLING UP PANTS.
--- NOTE | 2016-10-23 11:30 | NUR ---
PATIENT RESTING IN BED. LIGHTS OUT. EYES CLOSED. BED ALARM ON. CALL LIGHT WITHIN REACH. ABLE TO SEE PATIENT FROM NURSING STATION
--- NOTE | 2016-10-23 12:41 | NUR ---
PT UP EATING LUNCH, DENIES NEEEDS.
--- NOTE | 2016-10-23 17:28 | NUR ---
PATIENT SITTING UP FOR SUPPER. HEATHER ALARM IN WHEELCHAIR, ON. CALL LIGHT WITHIN REACH
--- NOTE | 2016-10-23 20:57 | NUR ---
PT RECEIVED IN BED WITH EYE OPEN VISITING WITH GRANDDAUGHTER. NO COMPLAINTS OR CONCERNS NOTED AT THIS TIME. CALL LIGHT IN REACH.
[2016-10-23 22:11] VITALS: BP 104/71
--- NOTE | 2016-10-23 23:26 | NUR ---
PT IN BED WITH EYES CLOSED AND CHEST RISING. NO SIGN/SYMPTOMS OF DISTRESS NOTED. CALL LIGHT IN REACH.
--- NOTE | 2016-10-24 03:38 | NUR ---
PT IN BED WITH EYES CLOSED AND CHEST RISING. NO CONCERNS NOTED AT THIS TIME. CALL LIGHT IN REACH.
--- NOTE | 2016-10-24 06:11 | NUR ---
PT IN BED WITH EYES CLOSED AND CHEST RISING. NO CONCERNS NOTED AT THIS TIME. CALL LIGHT IN REACH.
--- NOTE | 2016-10-24 07:42 | NUR ---
PATIENT CONFUSED. ALERT/ORIENT TO SELF ONLY. BED/CHAIR ALARM ON AT ALL TIMES. CALL LIGHT WITHIN REACH. RESTING WELL, EYES SHUT
[2016-10-24 08:00] VITALS: BP 128/87
--- NOTE | 2016-10-24 09:59 | NUR ---
PATIENT SAT UP FOR BREAKFAST. THIS NURSE HELPED PATIENT WITH DENTURES. BOTTOM AND TOP. CHAIR ALARM ON WHILE PATIENT IN WHEELCHAIR TO EAT. AFTER BREAKFAST THIS NURSE HELPED PATIENT TO BATHROOM. PATIENT IS CONT OF B/B. PATIENT REQUESTED DENTURES TAKEN OUT. PATIENT REQUESTED TO GO BACK TO BED. THIS NURSE HELPED PATIENT BACK TO BED. MIN TO MOD ASST FROM WHEELCHAIR TO BED. BED ALARM ON
--- NOTE | 2016-10-24 11:52 | NUR ---
FAMILY INTO VISIT WITH PATIENT. PATIENT GOTTEN UP FOR LUNCH. SITTING IN THE WHEELCHAIR AT BEDSIDE.
--- NOTE | 2016-10-24 14:20 | NUR ---
PATIENT: L MCA INFRACT. RIGHT ARM FLACCID. PATIENT STRONGER IN TRANSFERS/AMBULATION.
--- NOTE | 2016-10-24 19:41 | NUR ---
WI RECEIVED IN BED WITH EYES CLOSED AND CHEST RISING. EASILY AROUSED TO VERBAL STIMULI. NO CONCERNS NOTED AT THIS TIME. CALL LIGHT IN REACH.
[2016-10-24 19:56] VITALS: BP 113/73
--- NOTE | 2016-10-25 | NUR ---
PT IN BED WITH HOB UP FOR COMFORT. EYES CLOSED. RESPIRATIONS EVEN AND UNLABORED. BED IN LOWEST POSITION AND CALL LIGHT WITHIN REACH.
--- NOTE | 2016-10-25 00:15 | NUR ---
PT IN BED WITH EYES CLOSED AND CHEST RISING. ASSISTED TO BATHROOM WITH MIN ASSIST. NO OTHER NEEDS MADE KNOWN. CALL LIGHT IN REACH.
--- NOTE | 2016-10-25 01:15 | NUR ---
PT GETTING OUT OF BED, ALARM SOUNDING, PT APPEARS TO BE DISREGARDING THE ALARM, MOD ASSIST WITH PATIENT FROM LYING TO SITTING UP IN BED, PT DEMONSTRATES LEFT ARM NEGLECT, UPON CUE, PT REPOSITIONS ARM. TRANSFERED FROM BED TO W/C WITH MIN ASSIST AND VERBAL CUES. VOIDED WITHOUT DIFFICULTY.
--- NOTE | 2016-10-25 03:02 | NUR ---
PT IN BED WITH EYES CLOSED AND CHEST RISING. NO CONCERNS NOTED. CALL LIGHT IN REACH.
[2016-10-25 06:56] LABS: BASOPHILS 0.6 % (0-2); EOSINOPHILS 2.6 % (0-7); HEMATOCRIT 44.1 % (36.0-48.0); HEMOGLOBIN 14.3 g/dL (12-16); IMMATURE GRANULOCYTES 0.5 % (0-5); LYMPHOCYTES 25.3 % (15-50); MCHC 32.4 g/dL (31.0-37.0); MCV 89.5 fL (80.0-100.0); MEAN PLATELET VOLUME 12.1 fL (7.4-10.4); PLATELET COUNT 257 10x3/uL (130-400); RBC 4.93 10x6/uL (4.00-5.40); RDW 13.8 % (11.5-14.5); WBC 6.5 10x3/uL (4.8-10.8)
[2016-10-25 07:03] LABS: ANION GAP 14.2 mmol/L (8-16); CARBON DIOXIDE 27.1 mmol/L (21.0-32.0); CREATININE - SERUM 0.9 mg/dL (0.6-1.3); POTASSIUM - SERUM 4.3 mmol/L (3.5-5.1)
--- NOTE | 2016-10-25 07:54 | NUR ---
SITTING UP EATING BREAKFAST. CALL LIGHT IN REACH
[2016-10-25 08:00] VITALS: BP 129/91
--- NOTE | 2016-10-25 08:01 | NUR ---
Pt sitting up in chair alarm on, alert and oriented to person pleasant affect
--- NOTE | 2016-10-25 09:30 | NUR ---
Pt sitting up in bed resting quietly
--- NOTE | 2016-10-25 11:49 | NUR ---
pt sitting up in wheelchair watching tv
--- NOTE | 2016-10-25 14:00 | NUR ---
PT LYING IN BED EYES CLOSED RESTING QUIETLY
--- NOTE | 2016-10-25 15:29 | NUR ---
NUTRITION MONITORING & EVAL CHART REVIEWED, PT VISIT. TOLERATING DIET, ~25% INTAKE RECENT MEALS. PT REPORTS DRINKING @ LEAST ONE ENSURE DAILY. ENCOURAGED PO INTAKE. RD FOLLOWING
--- NOTE | 2016-10-25 16:37 | NUR ---
ASSISTED PT TO RESTROOM
--- NOTE | 2016-10-25 18:15 | NUR ---
PT LYING IN BED VISITING WITH FAMILY DENIES PAIN AT THIS TIME
[2016-10-25 19:30] VITALS: BP 114/77
--- NOTE | 2016-10-25 20:00 | NUR ---
PT LYING IN BED. RESTING QUIETLY. CHEST RISING AND FALLING. BED IN LOWEST POSITON AND CALL LIGHT WIHTIN REACH.
--- NOTE | 2016-10-26 | NUR ---
PT IN BED WITH HOB UP FOR COMFORT. EYES CLOSED. RESPIRATIONS EVEN AND UNLABORED. BED IN LOWEST POSITION AND CALL LIGHT WITHIN REACH.
--- NOTE | 2016-10-26 04:00 | NUR ---
PT LYING IN BED. RESTING QUIETLY. RESPIRATIONS EVEN AND UNLABORED. BED IN LOWEST POSITION AND CALL LIGHT WITHIN REACH.
--- NOTE | 2016-10-26 08:15 | NUR ---
PT UP IN WHEELCHAIR AT BEDSIDE CALL LIGHT IN REACH NO PROBLEMS WILL MONITER
[2016-10-26 09:10] VITALS: BP 102/71
--- NOTE | 2016-10-26 10:47 | NUR ---
IN THERAPY.SHANTA WELL.
[2016-10-26 19:05] VITALS: BP 116/72
--- NOTE | 2016-10-26 20:00 | NUR ---
PT. IN BED WITH HOB UP FOR COMFORT. 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 RUE FLACCID AND RLE WEAK. PT. STILL CONFUSED EXCEPT SHE KNOWS HER NAME. ASSESSMENT COMPLETED. CALL LIGHT WITHIN REACH. PT. DENIES ANY NEEDS.
--- NOTE | 2016-10-26 23:10 | NUR ---
PT. IN BED WITH TV ON BUT NOT WATCHING. PT. FIDGETTING WITH COVERS AND MOVING AROUND IN BED ALOT. WHEN ASKED IF SHE WAS HURTING SHE SAYS "NO". PT. REPOSITIONED UP IN BED AND RE-COVERED. CALL LIGHT WITHIN REACH.
[2016-10-26 23:16] VITALS: BP 116/72
--- NOTE | 2016-10-27 07:30 | NUR ---
IN BED.CL IN REACH.
--- NOTE | 2016-10-27 08:26 | NUR ---
PATIENT CONFUSED, ORIENT TO SELF ONLY. BED ALARM ON. CALL LIGHT WITHIN REACH. VOICES NO NEEDS AT THIS TIME
[2016-10-27 09:04] VITALS: BP 112/66
--- NOTE | 2016-10-27 09:57 | NUR ---
OCCUPATIONAL THERAPIST WORKING WITH PATIENT IN SHOWER. PATIENT IS A MODERATE ASST WITH SHOWER.
--- NOTE | 2016-10-27 11:53 | NUR ---
OCCUPATIONAL THERAPIST WORKING WITH PATIENT. HELPED PATIENT WITH SHOWER.
--- NOTE | 2016-10-27 14:15 | NUR ---
PATIENT DOWN IN REHAB ROOM. WORKING WITH PHYSICAL THERAPIST. DENIES ANY PAIN/DISC. PATIENT RUNNING CONTROLED AFIB ON TELEMETRY.
--- NOTE | 2016-10-27 17:38 | NUR ---
PATIENT UP IN WHEELCHAIR. CHAIR ALARM ON. FAMILY INTO SEE PATIENT.
--- NOTE | 2016-10-27 19:54 | NUR ---
PT RECEIVED IN BED WITH EYES OPEN WATCHING TV. NO NEEDS OR CONCERNS MADE KNOWN. CALL LIGHT IN REACH.
[2016-10-27 20:15] VITALS: BP 116/69
--- NOTE | 2016-10-28 01:05 | NUR ---
PT UP IN WHEELCHAIR AFTER ASSISTANCE TO TOILET. MINS ASSISTED NEEDED FOR TRANSFERS. PT REQUESTED TO SIT UP FOR A WHILE WATCHING TV. CALL LIGHT AND WATER IN REACH.
--- NOTE | 2016-10-28 06:38 | NUR ---
PT UP IN WHEELCHAIR AT BEDSIDE. NO CONCERNS NOTED AT THIS TIME. CALL LIGHT IN REACH.
--- NOTE | 2016-10-28 07:30 | NUR ---
Pt sitting up in wheelchair A&O x2 reoriented to place, pleasant affect
[2016-10-28 08:22] VITALS: BP 104/80
--- NOTE | 2016-10-28 09:30 | NUR ---
Pt in therapy
--- NOTE | 2016-10-28 11:35 | NUR ---
PT SITTING UP IN WHEELCHAIR QUIETLY, DENIES ANY PAIN
--- NOTE | 2016-10-28 13:35 | NUR ---
PT IN WHEELCHAIR WATCHING TV QUIETLY
--- NOTE | 2016-10-28 15:30 | NUR ---
PT IN ROOM VISITING WITH FAMILY
--- NOTE | 2016-10-28 17:16 | NUR ---
PT LYING IN BED HOB 35 DEGREES EYES CLOSED RESTING QUIETLY
[2016-10-28 19:00] VITALS: BP 114/69
--- NOTE | 2016-10-28 19:27 | NUR ---
@1853 PT WAS FOUND ON FLOOR IN HER ROOM PT DENIES ANY PAIN NO INJURYS NOTED, NEURO CKS PERFORMED. PT TURNED OFF HER BED ALARM AND REMOVED HER GRIPPER SOCKS. VITALS: BP 114/69, P 94, R15, O2 98% ROOM AIR. ASSISTED PT IN W/C AND BACK TO BED, BUILT IN BED ALARM ON WELL HEATHER
--- NOTE | 2016-10-28 20:05 | NUR ---
GRANDCHILDREN COME TO VISIT.
--- NOTE | 2016-10-28 20:19 | NUR ---
CONTACTED SOLELIZABETH WATSON (DAUGHTER) AND EM LAZCANO APN OF FALL
--- NOTE | 2016-10-28 21:50 | NUR ---
ASSISTED PT TO BATHROOM AND BACK TO BED.
--- NOTE | 2016-10-29 00:20 | NUR ---
REPOSITIONED PATIENT HIGHER UP IN BED AND TURNED OUT HER BR LIGHT PER HER REQUEST. INTERNAL BED- AND HEATHER BED ALARMS ARE ARMED WITH SR UP X3.
--- NOTE | 2016-10-29 07:03 | NUR ---
RESTING QUIETLY IN BED. EYES CLOSED. CALL LIGHT IN REACH
[2016-10-29 08:21] VITALS: BP 98/78
--- NOTE | 2016-10-29 09:28 | NUR ---
PATIENT ALERT/ORIENT TO SELF ONLY. CHAIR ALARM ON. CALL LIGHT WITHIN REACH. PATIENT REMINDED TO CALL FOR HELP BEFORE SHE GETS UP. GAIT WEAK, UNSTEADY. RIGHT HAND AND ARM FLACID. VOICES NO NEEDS AT THIS TIME
--- NOTE | 2016-10-29 10:41 | NUR ---
PATIENT SITTING IN WHEELCHAIR IN ROOM. HEATHER ROLON ON. PATIENT GOT OUT OF CHAIR AND WAS TRYING TO GO TO BATHROOM. THIS NURSE FOUND PATIENT STANDING BY CHAIR AND HELPED PATIENT INTO BATHROOM. UNSTEADY GAIT.
--- NOTE | 2016-10-29 11:43 | NUR ---
UPDATES FAXED TO [facility] [phone], AUTH. # [id number] WITH CONFORMATION ECIEVED
--- NOTE | 2016-10-29 13:00 | NUR ---
FAMILY INOT VISIT WITH PATIENT. PATIENT HAS A POOR APPETITE. ONLY ATE 25% OF LUNCH. THIS PAIENT HELPED BACK TO BED AFTER LUNCH HEATHER AND BED ALARM ON. DOOR TO ROOM KEPT OPEN AFTER PATIENTS FAMILY LEFT.
--- NOTE | 2016-10-29 16:53 | NUR ---
PATIENTS BED ALARM WENT OFF. PATIENT STARTING TO GET IN CHAIR AT BEDSIDE. THIS NURSE WENT INTO ROOM AND HELPED PATIENT INTO CHAIR AND TO BATHROOM. PATIENT SITTING UP IN WHEELCHAIR, CHAIR ALARM ON.
--- NOTE | 2016-10-29 18:42 | NUR ---
DAUGHTER REQUESTED THAT PATIETS DENTURES BE REOVED BEFORE BEDTIME. PATIENT REFUSED
--- NOTE | 2016-10-29 19:15 | NUR ---
PT IN BED WITH HOB UP FOR COMFORT. RESTING QUIETLY. NO O2. NO IV. TELEMETRY. RIGHT ARM FLACCID. MEDS CRUSHED IN PUDDING. BED ALARM AND HEATHER ALARM. BED IN LOWEST POSITION AND CALL LIGHT WIHTIN REACH.
[2016-10-29 20:16] VITALS: BP 111/62
--- NOTE | 2016-10-29 23:15 | NUR ---
PT IN BED WITH HOB UP FOR COMFORT. EYES CLOSED. CHEST RISING AND FALLING. BED IN LOWEST POSITION AND CALL LIGHT WIHTIN REACH.
--- NOTE | 2016-10-30 03:15 | NUR ---
PT LYING IN BED. EYES CLOSED. CHEST RISING AND FALLING. BED IN LOWEST POSITION AND CALL LIGHT WITHIN REACH.
--- NOTE | 2016-10-30 03:55 | NUR ---
IN BED, EYES CLOSED. RESPIRATIONS ARE UNLABORED.
--- NOTE | 2016-10-30 05:47 | NUR ---
PT LYING IN BED. EYES CLOSED. RESPIRATIONS EVEN AND UNLABORED. BED IN LOWEST POSITION AND CALL LIGHT WITHIN REACH.
--- NOTE | 2016-10-30 07:30 | NUR ---
PT IS RESTING IN BED WITH EYES CLOSED. AWOKE EASILY TO VERBAL STIMULI. ASSISTED TO REPOSITION IN BED, SO PT COULD FEED HERSELF BREAKFAST. NO NEEDS VOICED. TELEMETRY UNIT IS ON AND INTACT. RIGHT ARM IS FLACCID. SR'S ARE UP X 3 IN BED. CALL LIGHT AND BEDSIDE TABLE ARE WITHIN EASY REACH. BED ALARM IS ON.
--- NOTE | 2016-10-30 07:59 | NUR ---
RESTING QUIETLY IN BED;CAF 90;CL IN REACH.
--- NOTE | 2016-10-30 09:02 | NUR ---
PT IS RESTING IN BED WITH EYES OPEN. NO NEEDS VOICED.
[2016-10-30 09:23] VITALS: BP 109/63
--- NOTE | 2016-10-30 11:59 | NUR ---
PT IS SITTING IN A WC IN HER ROOM FEEDING SELF LUNCH. NO ACUTE DISTRESS NOTED.
--- NOTE | 2016-10-30 14:36 | NUR ---
PT IS RESTING QUIETLY IN BED WITH EYES CLOSED. RESPS ARE EVEN AND UNLABORED. NO ACUTE DISTRESS NOTED.
--- NOTE | 2016-10-30 16:35 | NUR ---
PT RESTING IN BED WITH EYES CLOSED.
--- NOTE | 2016-10-30 19:35 | NUR ---
PT. IN BED WITH HOB UP FOR COMFORT. ASSESSMENT COMPLETED. ASSISTED PT. TO W/C TO BR TO URINATE. PT. CONSTIPATED AND WOULD LIKE SOMETHING TO HELP WITH HER CONSTIPATION. WILL GIVE ORDERED. CALL LIGHT WITHIN REACH.
[2016-10-30 20:06] VITALS: BP 96/66
--- NOTE | 2016-10-30 23:20 | NUR ---
PT. IN BED WITH HOB UP FOR COMFORT WITH EYES CLOSED AND RESP. EVEN. CALL LIGHT WITHIN REACH.
--- NOTE | 2016-10-31 00:30 | NUR ---
PT. IN BED WITH HOB UP FOR COMFORT WITH EYES CLOSED AND RESP. EVEN. CALL LIGHT WITHIN REACH.
--- NOTE | 2016-10-31 07:30 | NUR ---
PT IS RESTING IN BED WITH EYES CLOSED. AWOKE EASILY TO VERBAL STIMULI. PT IS ALERT TO SELF. CONFUSED TO TIME, PLACE AND SITUATION. SHE IS VERY FRIENDLY AND COOPERATIVE. RIGHT ARM IS FLACCID. PT ASSISTED UP TO WC FOR BREAKFAST. FEEDING SELF WITHOUT DIFFICULTY. NO SWALLOWING PROBLEMS NOTED. CALL LIGHT IS IN EASY REACH.
--- NOTE | 2016-10-31 09:36 | NUR ---
RESTING QUIETLY IN BED.CL IN REACH.
[2016-10-31 11:02] VITALS: BP 109/62
--- NOTE | 2016-10-31 11:30 | NUR ---
PT ASSISTED TO THE BATHROOM WITH MOD ASSIST FOR TRANSFERS. SBA FOR TOILETING. NO FURTHER NEEDS VOICED.
--- NOTE | 2016-10-31 13:20 | NUR ---
PT IS SITTING IN HER WC BESIDE HER BED WATCHING TV. NO ACUTE DISTRESS NOTED.
[2016-10-31 14:11] LABS: CKMB 0.4 U/L (0.0-3.6); CREATINE KINASE 47 UL (21-215)
[2016-10-31 14:17] LABS: TROPONIN-I < 0.017 ng/mL (0.000-0.060)
--- NOTE | 2016-10-31 17:48 | NUR ---
PT IS FEEDING SELF SUPPER IN HER ROOM. NO ACUTE DISTRESS NOTED.
--- NOTE | 2016-10-31 19:20 | NUR ---
SISTER VISIT, AND BRINGS BEAUTIFUL FLOWER.
[2016-10-31 20:32] LABS: CKMB 0.5 U/L (0.0-3.6); CREATINE KINASE 43 UL (21-215); TROPONIN-I < 0.017 ng/mL (0.000-0.060)
[2016-10-31 23:41] LABS: CKMB 0.4 U/L (0.0-3.6); CREATINE KINASE 44 UL (21-215)
[2016-10-31 23:42] LABS: TROPONIN-I < 0.017 ng/mL (0.000-0.060)
[2016-11-01 01:00] VITALS: BP 120/67
--- NOTE | 2016-11-01 01:05 | NUR ---
PT STATE UNABLE GO TO SLEEP. SIT UP IN WHEELCHAIR WATCH TV AND EAT SNACK.
--- NOTE | 2016-11-01 01:05 | NUR ---
PT OBSERVED CRAWLING OUT OF BED, PT DISREGARDS BED ALARM. RESPIRATIONS REGULAR AND UNLABORED. PT ENCOURAGED TO LIE DOWN. PT ROOM DOOR OPEN, ALTHOUGH PT REQUESTS TO HAVE DOOR CLOSED.
--- NOTE | 2016-11-01 07:12 | NUR ---
RESTING QUIETLY IN BED CALL LIGHT IN REACH
[2016-11-01 07:15] LABS: BASOPHILS 0.9 % (0-2); EOSINOPHILS 3.8 % (0-7); HEMATOCRIT 37.9 % (36.0-48.0); HEMOGLOBIN 12.2 g/dL (12-16); IMMATURE GRANULOCYTES 0.2 % (0-5); LYMPHOCYTES 29.4 % (15-50); MCH 28.6 pg (26.0-34.0); MCHC 32.2 g/dL (31.0-37.0); MCV 88.8 fL (80.0-100.0); MEAN PLATELET VOLUME 11.2 fL (7.4-10.4); MONOCYTES 16.9 % (2-11); NEUTROPHILS 48.8 % (40-80); PLATELET COUNT 221 10x3/uL (130-400); RBC 4.27 10x6/uL (4.00-5.40); RDW 13.6 % (11.5-14.5); WBC 5.3 10x3/uL (4.8-10.8)
[2016-11-01 07:28] LABS: ANION GAP 12.7 mmol/L (8-16); CALCIUM 9.5 mg/dL (8.5-10.1); CARBON DIOXIDE 25.3 mmol/L (21.0-32.0); CREATININE - SERUM 0.8 mg/dL (0.6-1.3)
--- NOTE | 2016-11-01 07:45 | NUR ---
PT ALERT AND ORIENTED X2 REORIENTED TO TIME. PLEASANT EFFECT.WILL BE DISCHARGED TODAY. SITTING UP IN WHEELCHAIR ALARM ON, CALL LIGHT IN REACH.
[2016-11-01 08:00] VITALS: BP 97/60
[2016-11-01] MEDS ORDERED: HYDROCODON-ACE1 EAC7 PO (08:47)
--- NOTE | 2016-11-01 09:28 | NUR ---
PATIENT DISCHRGING HOME WITH FAMILY. [facility] WILL WITH PATIENT AT HOME. [facility] WILL DELIVER A WHEELCHAIR TO PATIENT. DR. NATALIIA MONTES 11/09/16 @ 10:15, DR. FOURNIER 11/17/16 @ 11:40. PATIENT CHOICE FORM FOR HOME HEALTH AND [facility] FORM SIGNED, EXPLAINED AND FILED IN CHART
--- NOTE | 2016-11-01 10:00 | NUR ---
PT SITTING UP IN WHEELCHAIR. ASSISTED TO RESTROOM AND WITH GROOMING. NO CONCERNS VOICED AT THIS TIME.
--- NOTE | 2016-11-01 11:30 | NUR ---
PT IN ROOM WITH FAMILY. INFORMED DAUGHTER SOL WATSON AND GRANDDAUGHTER ANIBAL OF DISCHARGE INSTRUCTIONS AND FOLLOW UP APPOINTMENTS COPIES HAVE BEEN GIVEN TO FAMILY. PRESCRIPTION FOR HYDROCODONE WAS GIVEN TO MIKE HORTON AND ALL OTHERS WERE CALLED INTO [facility] IN [place], [place]. NO CONCERNED VOICED FROM FAMILY OR PT AT THIS TIME.
--- NOTE | 2016-11-01 12:15 | NUR ---
ASSISTED PT VIA WHEELCHAIR WITH ALL PERSONAL BELONGINGS. ASSISTED PT IN PERSONAL VECHILE WITH FAMILY MEMEBERS.
--- NOTE | 2016-11-01 12:23 | NUR ---
DISCHARGE INSTRUCTIONS FAXED TO [facility] AT , AUTH # [id number] WITH CONFORMATION RECIEVED
== END 2016-11-01 18:40 | disposition home health service (06) | DRG 57 ==
LOC: D.REHAB 19:13
PROVIDERS: ADMIT Emergency Medicine
DX: I69.351 Hemiplegia and hemiparesis following cerebral infarction affecting right dominant side (principal); R47.01 Aphasia; I69.391 Dysphagia following cerebral infarction; R13.12 Dysphagia, oropharyngeal phase; I10 Essential (primary) hypertension; I48.91 Unspecified atrial fibrillation; I25.10 Atherosclerotic heart disease of native coronary artery without angina pectoris; I65.29 Occlusion and stenosis of unspecified carotid artery

== ENCOUNTER 2020-08-31 17:08 | Inpatient (IN) | payer MEDICARE ==
[~2020-08-31] VITALS: Ht 162.6 cm; Wt 65.1 kg
[~2020-08-31 17:08] MED LIST changes: +HYDROCODON-ACE1 EAC7 PO; +KLOR-CON 1010 MEQ; -KLOR-CON M2020 MEQ PO
[2020-08-31 17:52] LABS: BASOPHILS 0.7 % (0-2); EOSINOPHILS 4.7 % (0-7); HEMATOCRIT 35.7 % (36.0-48.0); HEMOGLOBIN 11.3 g/dL (12-16); IMMATURE GRANULOCYTES 0.2 % (0-5); LYMPHOCYTE ABS# 1.77 10x3/uL (1.18-3.74); MCH 25.5 pg (26.0-34.0); MCHC 31.7 g/dL (31.0-37.0); MCV 80.6 fL (80.0-100.0); MEAN PLATELET VOLUME 11.3 fL (7.4-10.4); MONOCYTES 14.7 % (2-11); NEUTROPHILS 46.7 % (40-80); PLATELET COUNT 393 10x3/uL (130-400); RBC 4.43 10x6/uL (4.00-5.40); RDW 20.3 % (11.5-14.5); WBC 5.4 10x3/uL (4.8-10.8)
[2020-08-31 18:01] LABS: APTT 35.5 SECONDS (22.8-39.4); INR 2.41 (0.85-1.17); PROTIME 24.4 SECONDS (11.6-15.0)
[2020-08-31 18:58] LABS: CALC OSMOLALITY 274 mosm/kg (275-300); CALCIUM 8.4 mg/dL (8.5-10.1); CARBON DIOXIDE 26.7 mmol/L (21.0-32.0); CHLORIDE - SERUM 102 mmol/L (98-107); CREATININE - SERUM 0.9 mg/dL (0.6-1.3); GLUCOSE 94 mg/dL (74-106); POTASSIUM - SERUM 4.2 mmol/L (3.5-5.1); SODIUM 137 mmol/L (136-145); UREA NITROGEN 15 mg/dL (7-18); eGFR NON AFRICAN AMERICAN 62 mL/min (90-120)
[2020-08-31 19:15] LABS: ALBUMIN 2.5 g/dL (3.4-5.0); ALKALINE PHOSPHATASE 80 U/L (30-120); ALT (SGPT) 11 U/L (10-68); BILIRUBIN - TOTAL 0.37 mg/dL (0.2-1.3); CKMB 0.7 U/L (0.0-3.6); CREATINE KINASE 51 UL (21-215); MAGNESIUM - SERUM 2.1 mg/dL (1.8-2.4); PROTEIN - SERUM 7.6 g/dL (6.4-8.2)
[2020-08-31 19:16] LABS: TROPONIN-I < 0.017 ng/mL (0.000-0.060)
--- NOTE | 2020-08-31 21:00 | NUR ---
PT ARRIVED TO FLOOR FROM ER AT 2100 ON STRETCHER. TRANSFERRED TO BED. RIGHT SIDE CHEST TUBE SET TO 20CM CONTINOUS SUCTION. SMALL AMOUNT OF BLOOD IN TUBING. DRESSING INTACT AND PATENT. NO AIR LEAKS. IV TO RIGHT A/C SALINE LOCKED. PT ASSISTED INTO GOWN, WARM BLANKET AND IS NOW RESTING (2300)
[2020-08-31 21:58] VITALS: BP 140/65
[2020-08-31 23:10] VITALS: BP 140/65; BMI 25.8
[2020-09-01 02:07] VITALS: BP 124/72
--- NOTE | 2020-09-01 05:46 | NUR ---
NO DISTRESS. CHEST TUBE PATENT TO 20CM WALL SUCTION. SMALL AMOUNT BLOOD IN TUBING. PT HAS SLEPT WITH NO SIGNS OF DISCOMFORT SINCE RECIEVING IV MORHINE FOR PAIN/DISCOMFORT TO CHEST TUBE SITE. NPO UNTIL SEEN BY CARDIOLOGY.
[2020-09-01 06:07] VITALS: BP 118/85
[2020-09-01 06:33] LABS: BASOPHILS 0.1 % (0-2); EOSINOPHILS 0.1 % (0-7); HEMATOCRIT 35.6 % (36.0-48.0); HEMOGLOBIN 11.2 g/dL (12-16); IMMATURE GRANULOCYTES 0.2 % (0-5); LYMPHOCYTES 12.1 % (15-50); MCH 25.2 pg (26.0-34.0); MCHC 31.5 g/dL (31.0-37.0); MEAN PLATELET VOLUME 10.7 fL (7.4-10.4); MONOCYTES 6.9 % (2-11); NEUTROPHIL ABS# 8.65 10x3/uL (1.56-6.13); NEUTROPHILS 80.6 % (40-80); PLATELET COUNT 326 10x3/uL (130-400); RBC 4.45 10x6/uL (4.00-5.40)
[2020-09-01 06:36] LABS: WBC 10.7 10x3/uL (4.8-10.8)
[2020-09-01 06:49] LABS: ALBUMIN 2.3 g/dL (3.4-5.0); ALKALINE PHOSPHATASE 75 U/L (30-120); ALT (SGPT) 9 U/L (10-68); BILIRUBIN - TOTAL 0.68 mg/dL (0.2-1.3); CALC OSMOLALITY 275 mosm/kg (275-300); CALCIUM 8.7 mg/dL (8.5-10.1); CARBON DIOXIDE 27.2 mmol/L (21.0-32.0); CHLORIDE - SERUM 103 mmol/L (98-107); CHOL - HDL RATIO 3.2 ratio (2.3-4.1); CHOLESTEROL, TOTAL 138 mg/dL (0-200); CKMB 0.7 U/L (0.0-3.6); CREATINE KINASE 24 UL (21-215); CREATININE - SERUM 0.8 mg/dL (0.6-1.3); GLUCOSE 130 mg/dL (74-106); HDL CHOLESTEROL 43 mg/dL (32-96); LDL CHOLESTEROL 85 mg/dL (0-100); MAGNESIUM - SERUM 2.1 mg/dL (1.8-2.4); POTASSIUM - SERUM 3.9 mmol/L (3.5-5.1); SODIUM 136 mmol/L (136-145); TRIGLYCERIDE 50 mg/dL (30-200); TROPONIN-I < 0.017 ng/mL (0.000-0.060); UREA NITROGEN 17 mg/dL (7-18); eGFR NON AFRICAN AMERICAN 72 mL/min (90-120)
--- NOTE | 2020-09-01 07:10 | NUR ---
RECEIVED REPORT. ASSUMED CARE OF PATIENT. WHITE BOARD UPDATED, BEDSIDE SHIFT REPORT COMPLETE. PATIENT EASILY AROUSED, RESP EVEN AND UNLABORED. RIGHT CHEST TUBE TO CONTINUOUS SUCTION. CALL LIGHT WITHIN REACH. NO DISTRESS. SR UP FOR SAFETY.
[2020-09-01 08:17] VITALS: BP 147/70
--- NOTE | 2020-09-01 10:00 | NUR ---
FAMILY AT BEDSIDE. PATIENT NOW ABLE TO CONSUME AM MEAL. CALL LIGHT WITHIN REACH. NO DISTRESS.
[2020-09-01 12:02] VITALS: BP 128/80
[2020-09-01 12:37] LABS: CKMB 0.5 U/L (0.0-3.6); CREATINE KINASE 47 UL (21-215); TROPONIN-I < 0.017 ng/mL (0.000-0.060)
--- NOTE | 2020-09-01 13:00 | NUR ---
ASSISTED PATIENT ON AND OFF BEDPAN. DENIES NEEDS. NO DISTRESS.
[2020-09-01 16:25] VITALS: BP 154/85
--- NOTE | 2020-09-01 16:30 | NUR ---
ASSISTED PATIENT WITH PM MEAL SETUP. CALL LIGHT WITHIN REACH. CHEST TUBE REMAINS PATENT TO WALL SUCTION. PATIENT DENIES NEEDS. COMPLAINTS OF PAIN TO RIGHT CHEST TUBE SITE DURING REPOSITIONING. NO DISTRESS.
[2020-09-01 19:13] LABS: CKMB 0.5 U/L (0.0-3.6); CREATINE KINASE 25 UL (21-215)
[2020-09-01 19:21] LABS: TROPONIN-I < 0.017 ng/mL (0.000-0.060)
--- NOTE | 2020-09-01 19:44 | NUR ---
RECIEVED UP IN BED WITH EYES OPEN AND TV ON. ALERT AND ORIENTED TO PERSON. HAS CHEST TUBE TO RIGHT SIDE WITH DSG CDI. SMALL AMT OF SEROUSANGIOUS DRAINAGE TO CHAMBER. TELEMETRY IN PLACE. VERY EAGLE. DENIES ANY NEEDS AT THIS TIME.
[2020-09-01 23:32] VITALS: BP 117/79
[2020-09-02 05:39] LABS: BASOPHILS 0.4 % (0-2); EOSINOPHILS 2.7 % (0-7); HEMATOCRIT 32.6 % (36.0-48.0); HEMOGLOBIN 10.2 g/dL (12-16); IMMATURE GRANULOCYTES 0.4 % (0-5); LYMPHOCYTE ABS# 1.33 10x3/uL (1.18-3.74); LYMPHOCYTES 24.1 % (15-50); MCH 25.1 pg (26.0-34.0); MCHC 31.3 g/dL (31.0-37.0); MCV 80.1 fL (80.0-100.0); MEAN PLATELET VOLUME 10.4 fL (7.4-10.4); MONOCYTES 14.5 % (2-11); NEUTROPHILS 57.9 % (40-80); PLATELET COUNT 292 10x3/uL (130-400); RBC 4.07 10x6/uL (4.00-5.40); RDW 19.1 % (11.5-14.5)
[2020-09-02 05:43] LABS: WBC 5.5 10x3/uL (4.8-10.8)
[2020-09-02 06:14] LABS: ANION GAP 12.4 mmol/L (8-16); CALCIUM 8.6 mg/dL (8.5-10.1); CARBON DIOXIDE 26.5 mmol/L (21.0-32.0); CREATININE - SERUM 0.8 mg/dL (0.6-1.3); MAGNESIUM - SERUM 2.1 mg/dL (1.8-2.4); PHOSPHOROUS 3.6 mg/dL (2.5-4.9); POTASSIUM - SERUM 3.9 mmol/L (3.5-5.1)
[2020-09-02 07:00] VITALS: BP 140/94
--- NOTE | 2020-09-02 08:34 | NUR ---
AM ROUND DONE WITH PATIENT NEEDING ASSIST TO BEDPAN. RIGHT CHEST TUBE TO 20 CM WALL SUCTION, WITH DRESSING C/D/I. HARD OF HEARING. ON 3L PER NC. ON HEART MONITOR. PATIENT WANTS TO HAVE DEPENDS REPLACED, EDUCATED IN NOT SHE WAS INCONT. IN BRIEF. STATES TO UNDERSTANDING. RIGHT AC PIV SEEN, FLUSHED WELL. ORANGE SWAB CAP PLACED.
--- NOTE | 2020-09-02 11:13 | NUR ---
SUCTION TURNED OFF CHEST TUBE ORDERED AND I CALLED LORI IN RADIOLOGY TO LET HER KNOW.
[2020-09-02 11:30] VITALS: BP 139/96
--- NOTE | 2020-09-02 12:40 | NUR ---
SUCTION TURNED BACK ON FOR CHEST TUBE PER DR VALLEJO.
[2020-09-02 16:00] VITALS: BP 124/82
--- NOTE | 2020-09-02 17:46 | NUR ---
PATIENT TO STILL COMPLAIN OF PAIN TO RIGHT SIDE. PAGE INTO DR VALLEJO TO SEE IF WE COULD GET ANOTHER CHEST XRAY.
--- NOTE | 2020-09-02 17:50 | NUR ---
DR VALLEJO TO CALL BACK WITH NEW ORDERS.
--- NOTE | 2020-09-02 18:35 | NUR ---
PAGE INTO DR VALLEJO R/T CXR. AWAITING CALL BACK.
--- NOTE | 2020-09-02 18:41 | NUR ---
DR VALLEJO TO CALL BACK WITH NO NEW ORDERS.
--- NOTE | 2020-09-02 18:47 | NUR ---
CALLED DAYNA WATSON 9 DAUGHTER0 BACK WITH REPORT OF NO CHANGES PER DR VALLEJO.
--- NOTE | 2020-09-02 19:27 | NUR ---
RECIEVED UP IN BED WITH EYES OPEN AND TV ON. ALERT AND ORIENTED TO PERSON AND PLACE. CHEST TUBE IN PLACE WITHH SUCTION. IV TO RT AC SL. TELEMETRY IN PLACE. DENIES ANY NEEDS AT THIS TIME.
[2020-09-02 20:00] VITALS: BP 141/88
[2020-09-03] VITALS: BP 145/77
[2020-09-03 04:00] VITALS: BP 169/97
[2020-09-03 05:56] LABS: BASOPHILS 0.2 % (0-2); EOSINOPHILS 2.1 % (0-7); HEMATOCRIT 34.3 % (36.0-48.0); HEMOGLOBIN 10.7 g/dL (12-16); IMMATURE GRANULOCYTES 0.4 % (0-5); MCH 25.1 pg (26.0-34.0); MCHC 31.2 g/dL (31.0-37.0); MCV 80.3 fL (80.0-100.0); MEAN PLATELET VOLUME 10.8 fL (7.4-10.4); MONOCYTES 14.6 % (2-11); NEUTROPHIL ABS# 2.81 10x3/uL (1.56-6.13); NEUTROPHILS 52.7 % (40-80); PLATELET COUNT 334 10x3/uL (130-400); RBC 4.27 10x6/uL (4.00-5.40); RDW 19.3 % (11.5-14.5); WBC 5.3 10x3/uL (4.8-10.8)
[2020-09-03 06:23] LABS: ANION GAP 11.2 mmol/L (8-16); CALCIUM 9.4 mg/dL (8.5-10.1); CARBON DIOXIDE 27.4 mmol/L (21.0-32.0); CREATININE - SERUM 0.8 mg/dL (0.6-1.3); PHOSPHOROUS 3.3 mg/dL (2.5-4.9); POTASSIUM - SERUM 3.6 mmol/L (3.5-5.1)
[2020-09-03 08:35] VITALS: BP 161/94
[2020-09-03 11:46] VITALS: BP 166/90
[2020-09-03 16:25] VITALS: BP 139/90
--- NOTE | 2020-09-03 20:00 | NUR ---
ASSESSMENT PER FLOW SHEET, VS OBTAINED PER COCOA BEAN ROASTER, SCD'S NOTED TO BE OFF AT THIS TIME, SCD'S PLACED ON AND WORKING PROPERLY, CHEST TUBE IN PLACE TO SUCTION, SALINE LOCK TO LEFT HAND INTACT WITH NO REDNESS OR EDEMA, PT REPORTS FLATUS, NO, AND USES BEDPAN WHEN NEEDING TO VOID, FRESH H20 SERVED, BED IN LOW POSITION, SIDE RAILS X 2, CALL LIGHT IN REACH
[2020-09-03 21:26] VITALS: BP 160/91
--- NOTE | 2020-09-03 21:30 | NUR ---
PT RESTING, AROUSES TO OPENING OF DOOR, PT DENIES NEEDS OR PAIN AT THIS TIME, BED IN LOW POSITION, SIDE RAILS X 2, CALL LIGHT IN REACH
--- NOTE | 2020-09-03 22:28 | NUR ---
PT RESTING, REQUESTS SINK LIGHT OFF, DENIES FURTHER NEEDS OR PAIN, BED IN LOW POSITION, SIDE RAILS X 2, CALL LIGHT IN REACH
[2020-09-04] VITALS: BP 161/97
--- NOTE | 2020-09-04 00:35 | NUR ---
PT RESTING WITH EYES CLOSED, RESP QUIET, NO DISTRESS NOTED, LEFT UNDISTURBED AT THIS TIME, BED IN LOW POSITION, SIDE RAILS X 2, CALL LIGHT IN REACH
[2020-09-04 04:00] VITALS: BP 140/81
--- NOTE | 2020-09-04 05:10 | NUR ---
RN ASSESSMENT IN ROOM OBTAINING VS
--- NOTE | 2020-09-04 06:00 | NUR ---
CHEST TUBE TO ROOM AIR PER MD ORDERS
--- NOTE | 2020-09-04 06:39 | NUR ---
ADM PROTONIX PER MD ORDERS, SEE EMAR, PT INCONT, COMPLETE BEDDING CHANGE AND GOWN CHANGED, FRESH H20 SERVED, ASSISTED PT WITH DENTURES, PT DENIES FURTHER NEEDS
[2020-09-04 06:47] LABS: BASOPHILS 0.7 % (0-2); EOSINOPHILS 3.5 % (0-7); HEMOGLOBIN 10.4 g/dL (12-16); IMMATURE GRANULOCYTES 0.3 % (0-5); LYMPHOCYTE ABS# 1.29 10x3/uL (1.18-3.74); LYMPHOCYTES 21.5 % (15-50); MCH 25.4 pg (26.0-34.0); MCHC 31.5 g/dL (31.0-37.0); MCV 80.7 fL (80.0-100.0); MEAN PLATELET VOLUME 10.6 fL (7.4-10.4); MONOCYTES 14.8 % (2-11); NEUTROPHIL ABS# 3.55 10x3/uL (1.56-6.13); NEUTROPHILS 59.2 % (40-80); PLATELET COUNT 294 10x3/uL (130-400); RBC 4.09 10x6/uL (4.00-5.40); RDW 19.1 % (11.5-14.5)
--- NOTE | 2020-09-04 07:00 | NUR ---
SHIFT REPORT TO DAY SHIFT NURSE
--- NOTE | 2020-09-04 07:00 | NUR ---
AM ROUNDS COMPLETED, RESTING COMFORTABLY, REQUIRED BEDPAN ASSISTED RESIDENT. O2 WAS OFF REPLACED, RESIDENT O2 SAT ON ROOM AIR 98. NO CURRENT COMPLAINTS. CHEST TUBE DRESSING IN PLACE AND C/D/I. 57 MLS NOTED FROM LAST STAFF NATALIIA OF 39 MLS. CHEST TUBE OFF VACCUM FOR XRAY.
[2020-09-04 07:02] LABS: CALC OSMOLALITY 274 mosm/kg (275-300); CALCIUM 8.9 mg/dL (8.5-10.1); CARBON DIOXIDE 29.3 mmol/L (21.0-32.0); CHLORIDE - SERUM 103 mmol/L (98-107); CREATININE - SERUM 0.7 mg/dL (0.6-1.3); GLUCOSE 92 mg/dL (74-106); MAGNESIUM - SERUM 1.9 mg/dL (1.8-2.4); PHOSPHOROUS 3.4 mg/dL (2.5-4.9); POTASSIUM - SERUM 3.7 mmol/L (3.5-5.1); SODIUM 138 mmol/L (136-145); UREA NITROGEN 9 mg/dL (7-18); eGFR NON AFRICAN AMERICAN 83 mL/min (90-120)
[2020-09-04 08:09] VITALS: BP 141/92
--- NOTE | 2020-09-04 10:18 | NUR ---
DR. VALLEJO PAGED R/T XRAY RESULTS, AWAITING CALL BACK AND NEW ORDERS.
--- NOTE | 2020-09-04 10:25 | NUR ---
DR. VALLEJO RETURNED PAGE WITH NEW ORDERS TO GATHER DRESSINGS AND SUTURE REMOVAL KIT. HE WILL BE UP TO REMOVE CHEST TUBE.
[2020-09-04 12:00] VITALS: BP 146/85
[2020-09-04 16:12] VITALS: BP 146/83
--- NOTE | 2020-09-04 17:47 | NUR ---
DRESSING CLEAN DRY AND INTACT. NO COMPLAINTS AT THIS TIME. RESTING COMFORTABLY.
--- NOTE | 2020-09-04 19:00 | NUR ---
RECEIVED SHIFT REPORT FROM DAY SHIFT NURSE
--- NOTE | 2020-09-04 20:25 | NUR ---
ASSESSMENT PER FLOW SHEET, VS OBTAINED PER BALER, DRESSING TO RIGHT SIDE OF BACK CDI WITH NO DRAINAGE NOTED, PT DENIES FLATUS, NO BM, AND USING BED FAY ON OCCASSION, PT PLACED ON BED FAY AT THIS TIME, PT INST TO USE CALL LIGHT WHEN FINISHED, PT VERBALIZES UNDERSTANDING
--- NOTE | 2020-09-04 20:45 | NUR ---
PT CLERICAL SECRETARY LIGHT, PT REMOVED FROM BEDPAN
--- NOTE | 2020-09-04 21:45 | NUR ---
PT RESTING WITH EYES CLOSED, RESP QUIET, NO DISTRESS NOTED, LEFT UNDISTURBED AT THIS TIME
[2020-09-04 22:11] VITALS: BP 143/85
[2020-09-05] VITALS (12 sets, daily range): BP systolic 115–160; BP diastolic 59–108; Ht 162.6 cm; Wt 65.1 kg
--- NOTE | 2020-09-05 00:10 | NUR ---
PT AWAKE, PT REQUESTED AND PROVIDED WARM BLANKET, INFORMED PT THAT THE LIVESTOCK TRADER WILL BE IN SHORTLY TO OBTAIN VS, SCD'S CONTINUE ON AND WORKING PROPERLY, PT DENIES FURTHER NEEDS OR PAIN
--- NOTE | 2020-09-05 02:33 | NUR ---
PT RESTING WITH EYES CLOSED, RESP QUIET, NO DISTRESS NOTED, LEFT UNDISTURBED AT THIS TIME
--- NOTE | 2020-09-05 04:10 | NUR ---
BED ALARM GOING OFF, PT SCOOTED DOWN IN BED, PT INCONT, THIS RN AND TEZ UNGENT CNA DID COMPLETE BEDDING CHANGE, CLEANED PT UP, CHANGED GOWN, AND REPOSITIONED PT, PT DENIES FURTHER NEEDS OR PAIN AT THIS TIME, BED IN LOW POSITION, SIDE RAILS X 2, CALL LIGHT IN REACH
--- NOTE | 2020-09-05 05:51 | NUR ---
PT AWAKE, ADM PRTONIX PER MD ORDERS, SEE EMAR WITH FRESH H20
[2020-09-05 06:33] LABS: BASOPHILS 0.3 % (0-2); EOSINOPHILS 4.3 % (0-7); HEMATOCRIT 33.5 % (36.0-48.0); HEMOGLOBIN 10.5 g/dL (12-16); IMMATURE GRANULOCYTES 0.5 % (0-5); LYMPHOCYTES 24.3 % (15-50); MCH 25.1 pg (26.0-34.0); MCHC 31.3 g/dL (31.0-37.0); MCV 80.1 fL (80.0-100.0); MEAN PLATELET VOLUME 10.4 fL (7.4-10.4); MONOCYTES 13.6 % (2-11); NEUTROPHIL ABS# 3.27 10x3/uL (1.56-6.13); PLATELET COUNT 291 10x3/uL (130-400); RBC 4.18 10x6/uL (4.00-5.40); RDW 19.2 % (11.5-14.5); WBC 5.8 10x3/uL (4.8-10.8)
[2020-09-05 06:51] LABS: CALC OSMOLALITY 274 mosm/kg (275-300); CALCIUM 8.9 mg/dL (8.5-10.1); CARBON DIOXIDE 29.6 mmol/L (21.0-32.0); CHLORIDE - SERUM 103 mmol/L (98-107); CREATININE - SERUM 0.6 mg/dL (0.6-1.3); GLUCOSE 98 mg/dL (74-106); PHOSPHOROUS 3.2 mg/dL (2.5-4.9); POTASSIUM - SERUM 3.5 mmol/L (3.5-5.1); SODIUM 138 mmol/L (136-145); UREA NITROGEN 11 mg/dL (7-18); eGFR NON AFRICAN AMERICAN > 90 mL/min (90-120)
--- NOTE | 2020-09-05 07:00 | NUR ---
PT LYING IN BED. RESP EVEN AND UNLABORED. O2 2 LPM VIA NC IN PLACE. ALERT AND ORIENTED TO PERSON. CONFUSED TO PLACE, TIME, AND SITUATION. DENIES NEEDS AT THIS TIME. CLIR. BED IN LOWEST POSITION. SIDE RAILS X2. BED ALARM ACTIVATED
--- NOTE | 2020-09-05 07:00 | NUR ---
SHIFT REPORT TO DAY SHIFT
--- NOTE | 2020-09-05 11:34 | NUR ---
REHAB ORDER RECEIVED. CHART REVIEWED. DISCUSSED POSSIBLE REHAB PLACEMENT WITH DAUGHTER, SOL WATSON, . DAUGHTER IS WILLING FOR PATIENT TO COME TO REHAB IF PHYSICAL THERAPY DETERMINES IS NECESSARY. WILL SUBMIT SCREEN TO [facility] TODAY. THANK YOU FOR THIS REFERRAL. NICOLASA MORE LPN, CLINICAL LIAISON
--- NOTE | 2020-09-05 12:11 | NUR ---
PT TRANSFERRED TO CVICU ACCOMPANIED BY HOSPTIAL STAFF. NONREBREATHER IN PLACE. PERSONAL BELONGINGS SENT WITH PT
--- NOTE | 2020-09-05 14:12 | NUR ---
OT NOTE: PT COMPLETED BED MOB WITH MAX A. PT COMPLETED BED TO CHAIR TSF WITH MAX A. PT REQUIRED TOTAL A FOR KOLBY SOCKS. PT REQUIRED MAX A FOR LB HYGIENE. NURSING PRESENT WHEN PT UP IN CHAIR. [id number] JACQUELIN CAT COTA
--- NOTE | 2020-09-05 14:25 | NUR ---
MILLA AT BEDSIDE AND ORDER GIVEN TO ADMINISTER MORPHINE 1 MG IV FOR PT R SIDED CHEST PAIN PRIOR TO INSERTING CHEST TUBE.
--- NOTE | 2020-09-05 14:41 | NUR ---
DR LOYOLA AT BEDSIDE TO PLACE R CHEST TUBE
--- NOTE | 2020-09-05 14:56 | NUR ---
PATIENT HAS BEEN MOVED TO THE CVICU, WE WILL NOT BE SENDING AUTH AT THIS TIME. WE WILL CONTINUE TO FOLLOW AND WHEN SHE IS STABLE, WE WILL SEND AUTH TO BRING HER INTO THE REHAB. THANK YOU FOR THE REFERRAL. WALESKA MACHADO RN CLINICAL LIAISON, INPATIENT REHAB.
--- NOTE | 2020-09-05 15:33 | NUR ---
PT C/O OF SEVERE PAIN TO R SIDE. MILLA ON UNIT AND ASSESSED PT. ORDER GIVEN FOR MORPHINE 1 MG Q 1HR PRN.
[2020-09-06] VITALS (21 sets, daily range): BP systolic 132–160; BP diastolic 70–101
[2020-09-06 05:15] LABS: BASOPHILS 0.4 % (0-2); EOSINOPHILS 1.9 % (0-7); HEMATOCRIT 34.9 % (36.0-48.0); HEMOGLOBIN 10.9 g/dL (12-16); IMMATURE GRANULOCYTES 0.2 % (0-5); LYMPHOCYTE ABS# 1.01 10x3/uL (1.18-3.74); LYMPHOCYTES 19.2 % (15-50); MCH 25.4 pg (26.0-34.0); MCHC 31.2 g/dL (31.0-37.0); MCV 81.4 fL (80.0-100.0); MEAN PLATELET VOLUME 10.5 fL (7.4-10.4); MONOCYTES 14.2 % (2-11); NEUTROPHIL ABS# 3.38 10x3/uL (1.56-6.13); NEUTROPHILS 64.1 % (40-80); PLATELET COUNT 298 10x3/uL (130-400); RBC 4.29 10x6/uL (4.00-5.40); RDW 19.4 % (11.5-14.5); WBC 5.3 10x3/uL (4.8-10.8)
[2020-09-06 05:40] LABS: CALC OSMOLALITY 275 mosm/kg (275-300); CALCIUM 9.2 mg/dL (8.5-10.1); CARBON DIOXIDE 27.7 mmol/L (21.0-32.0); CHLORIDE - SERUM 103 mmol/L (98-107); CREATININE - SERUM 0.7 mg/dL (0.6-1.3); GLUCOSE 114 mg/dL (74-106); PHOSPHOROUS 3.5 mg/dL (2.5-4.9); POTASSIUM - SERUM 3.8 mmol/L (3.5-5.1); SODIUM 138 mmol/L (136-145); UREA NITROGEN 11 mg/dL (7-18); eGFR NON AFRICAN AMERICAN 83 mL/min (90-120)
--- NOTE | 2020-09-06 15:27 | NUR ---
0700 BEDSIDE SHIFT REPORT RECIEVED AND CARE ASSUMED OF PATIENT.. SEE FL;OW SHEET FOR SHIFT ASSESMENT FINDINGS... 0800 PT WILL NOT AROUSE ENOUGH TO EAT BREAKFAST 0900 DR VALLEJO IN TO SEE PAITNET... UPDATE GIVEN... 1030 DR LOYOLA IN TO SEE PATIENT.. SPOKE WITH FAMILY AT THE BEDSIDE.. 1200 LUNCH SERVED AND PATIENT IS AWAKE... PATIENT FED LUNCH AFTER FALSE TEETH PLACED... 1330 FAMILY BACK IN TO SEE PATIENT.. 1430 C/O PAIN IN RIGHT SIDE.. MORPHINE GIVEN.. 1500 SLEEPING AT THIS TIME... CHECKED FOR INCONTINENCE... CECILY AT THE PRESENT..
[2020-09-07] VITALS (22 sets, daily range): BP systolic 126–160; BP diastolic 71–94
--- NOTE | 2020-09-07 10:46 | NUR ---
0700 BEDSIDE SHIFT REPORT RECIEVED AND CARE ASSUMED OF THE PATIENT.. SEE FLOW SHEET FOR SHIFYT ASSESMENT FINDINGS.. PT IS SLEEPING AT THIDS TIME 0900 DR VALLEJO IN TO SEE PATIENT UPDATE IS GIVEN.. 0945 PT IS AWAKE AND BREAKFAST IS FED TO PATIENT... SMALL AMOUNT TAKEN MEDS GIVEN.. 1045 FAMILY IN YO SEE PATIENT...
--- NOTE | 2020-09-07 11:40 | OP ---
PATIENT NAME: AMINAH AYALA MEDICAL RECORD: [id number] :34 [facility] ADMISSION DATE:08/31/20 SURGEON: SAMMY FREITAS MD DATE OF OPERATION: 09/05/2020 SURGEON: Sammy Freitas MD PROCEDURE: Right tube thoracostomy. PREOPERATIVE DIAGNOSIS: Recurrent right pneumothorax. POSTOPERATIVE DIAGNOSIS: Recurrent right pneumothorax. DESCRIPTION OF PROCEDURE: With the patient supine, slightly on the left side in the ICU with heart rate, blood pressure, and pulse oximetry monitored after intravenous sedation and informed consent by phone with the patient's family. Right chest was prepped and draped. A 1% Xylocaine was used for local anesthetic and the pneumothorax was localized over the superior surface of her rib. A 1 cm skin incision was made, spread down to the chest cavity and the pleural cavity was entered and air return was noted. Trocar 28 chest tube was passed easily and sutured into place. Lung reexpanded. There was no continuous air leak sutured in place. Chest x-ray pending. No apparent complications. TRANSINT:[id number] Voice Confirmation ID: [id number] DOCUMENT ID: [id number] SAMMY FREITAS MD at 1140 CC: SANTA VALLEJO MD [id number] DICTATION DATE: 09/05/201840 WATER SAFETY TEACHER: 09/05/202055 ADM IN [address] [place] [place] [address]
--- NOTE | 2020-09-07 13:27 | NUR ---
1200 GRAND DAUGHTER AT THE BEDSIDE.. UPDATE GIVEN PATIENT AWAKE 1230 GRANDDAUGHTER FEEDING PATIENT LUNCH.. SMALL AMOUNT TAKEN 1300 PT REQUEST BEDPAN.. VOIDED .. GRANDDAUGHTER GONE .. PT C/O PAIN MORPHINE GIVEN..
[2020-09-07 16:15] LABS: BASOPHILS 0.4 % (0-2); EOSINOPHILS 3.1 % (0-7); HEMATOCRIT 34.7 % (36.0-48.0); HEMOGLOBIN 11.1 g/dL (12-16); IMMATURE GRANULOCYTES 0.2 % (0-5); LYMPHOCYTE ABS# 1.24 10x3/uL (1.18-3.74); LYMPHOCYTES 24.4 % (15-50); MCH 25.9 pg (26.0-34.0); MCV 80.9 fL (80.0-100.0); MEAN PLATELET VOLUME 10.6 fL (7.4-10.4); NEUTROPHIL ABS# 2.94 10x3/uL (1.56-6.13); NEUTROPHILS 57.9 % (40-80); PLATELET COUNT 276 10x3/uL (130-400); RBC 4.29 10x6/uL (4.00-5.40); WBC 5.1 10x3/uL (4.8-10.8)
[2020-09-07 16:16] LABS: ANION GAP 11.5 mmol/L (8-16); CALCIUM 8.9 mg/dL (8.5-10.1); CARBON DIOXIDE 27.2 mmol/L (21.0-32.0); CREATININE - SERUM 0.8 mg/dL (0.6-1.3); POTASSIUM - SERUM 3.7 mmol/L (3.5-5.1)
--- NOTE | 2020-09-07 18:48 | NUR ---
1630 DAUGHTER CALLED UPDATE IS FIVEN SHE REQUEST AT THIS TIME THAT UPDATES ONLY BE GIVEN TO HER.. SHE HAS THE PASSWORD.. 1730 GRANDSON HERE AND ASSISTED PT WITH MEAL ..
--- NOTE | 2020-09-07 19:00 | NUR ---
BEDSIDE REPORT COMPLETED WITH OFF GOING NURSE. PT IS RESTING IN BED WATCHING TV AT THIS TIME. SHIFT ASSESSMENT COMPLETED, SEE FLOWSHEET FOR DETAILS. NO S/S OF DISTRESS NOTED. WILL CONTINUE TO MONITOR.
[2020-09-08] VITALS (26 sets, daily range): BP systolic 100–189; BP diastolic 48–118
--- NOTE | 2020-09-08 07:28 | NUR ---
PT LAYING SUPINE, RR EVEN AND UNLABORED ON RA. DENIES NEEDS OR PAIN AT THIS TIME. CALL LIGHT WITHIN REACH. BED IN LOWEST POSITION. BED RAILS UP X2.
--- NOTE | 2020-09-08 12:15 | NUR ---
Nutrition Follow-up: Noted plans for CT guided apical chest tube; NPO. Poor PO intake otherwise (0-10%). Wt: 134.4# (09/08); 126.7# (09/06) Labs noted: Glu 110 Meds noted: Colace, Protonix, Zofran, electrolyte protocol -Resume diet when medically feasible; encourage PO intake and honor food preferences within diet restrictions. -Pt may benefit from an appetite stimulant. -RD follow-up: 09/10
--- NOTE | 2020-09-08 18:12 | NUR ---
1720 PATIENT RETURNED TO ROOM VIA BED.. CHEST TUBE RIGHT LATERAL CHEST DRRESSING CDI PLACED TO 20 CM SUCTIONSEROUS DRAINAGE.. 02 15L SIMPLE MASK.. SEE FLOW SHEET FOR VS [address] LOYOLA IN SPOKE WITH DAUGHTER AT BEDSIDE.. 1800 BP REMAINS HIGH HYDRALAZINE GIVEN.. 1815 BP BETTER... LAB IN TO DRAW BLOOD..
[2020-09-08 18:51] LABS: BASOPHILS 0.3 % (0-2); EOSINOPHILS 2.6 % (0-7); HEMATOCRIT 42.4 % (36.0-48.0); HEMOGLOBIN 13.4 g/dL (12-16); IMMATURE GRANULOCYTES 0.3 % (0-5); LYMPHOCYTE ABS# 1.79 10x3/uL (1.18-3.74); LYMPHOCYTES 28.7 % (15-50); MCH 25.6 pg (26.0-34.0); MCHC 31.6 g/dL (31.0-37.0); MCV 81.1 fL (80.0-100.0); MEAN PLATELET VOLUME 10.6 fL (7.4-10.4); MONOCYTES 17.7 % (2-11); NEUTROPHIL ABS# 3.14 10x3/uL (1.56-6.13); NEUTROPHILS 50.4 % (40-80); PLATELET COUNT 200 10x3/uL (130-400); RBC 5.23 10x6/uL (4.00-5.40); RDW 18.9 % (11.5-14.5); WBC 6.2 10x3/uL (4.8-10.8)
[2020-09-08 18:56] LABS: CALC OSMOLALITY 276 mosm/kg (275-300); CALCIUM 8.9 mg/dL (8.5-10.1); CARBON DIOXIDE 26.7 mmol/L (21.0-32.0); CHLORIDE - SERUM 104 mmol/L (98-107); CREATININE - SERUM 0.7 mg/dL (0.6-1.3); GLUCOSE 98 mg/dL (74-106); SODIUM 139 mmol/L (136-145); UREA NITROGEN 11 mg/dL (7-18); eGFR NON AFRICAN AMERICAN 83 mL/min (90-120)
[2020-09-08 18:57] LABS: POTASSIUM - SERUM 4.3 mmol/L (3.5-5.1)
[2020-09-09] VITALS (18 sets, daily range): BP systolic 116–166; BP diastolic 37–96
[2020-09-09 04:34] LABS: HEMATOCRIT 34.6 % (36.0-48.0); HEMOGLOBIN 10.9 g/dL (12-16); MCH 25.5 pg (26.0-34.0); MCHC 31.5 g/dL (31.0-37.0); RBC 4.27 10x6/uL (4.00-5.40); RDW 18.9 % (11.5-14.5); WBC 7.3 10x3/uL (4.8-10.8)
[2020-09-09 04:54] LABS: ALBUMIN 2.4 g/dL (3.4-5.0); ALKALINE PHOSPHATASE 75 U/L (30-120); ALT (SGPT) 9 U/L (10-68); BILIRUBIN - TOTAL 0.46 mg/dL (0.2-1.3); CALC OSMOLALITY 275 mosm/kg (275-300); CALCIUM 8.8 mg/dL (8.5-10.1); CARBON DIOXIDE 26.1 mmol/L (21.0-32.0); CHLORIDE - SERUM 103 mmol/L (98-107); CREATININE - SERUM 0.7 mg/dL (0.6-1.3); GLUCOSE 95 mg/dL (74-106); POTASSIUM - SERUM 4.1 mmol/L (3.5-5.1); PROTEIN - SERUM 8.2 g/dL (6.4-8.2); SODIUM 138 mmol/L (136-145); UREA NITROGEN 12 mg/dL (7-18); eGFR NON AFRICAN AMERICAN 83 mL/min (90-120)
--- NOTE | 2020-09-09 09:32 | NUR ---
ASSISTED PT WITH MEAL TRAY. PT DID EAT 20% OF BREAKFAST TRAY WITH OUT DIFFICULTY. DR LOYOLA HERE THIS AM ON ROUNDS. RT CT 20CM SUCTION NO AIR LEAK NOTED.
--- NOTE | 2020-09-09 13:21 | NUR ---
PATIENT IN BED WITH IV INTACT. NO COMPLAINTS OR SIGNS OF DISTRESS. CHEST INTACT. 20 CM SUCTION. BSCDS ON AND WORKING. NO SKIN BREAKDOWN TO BACK OR BUTTOCKS NOTED AT THIS TIME. VS STABLE. IV INTACT. CALL LIGHT WITHIN REACH.
--- NOTE | 2020-09-09 15:39 | NUR ---
PATIENT IN BED WITH IV INTACT. EYES CLOSED RESTING QUIETLY. CT TO 20 CM SUCTION. DRESSING CDI. CALL LIGHT WITHIN REACH. FAMILY AT BEDSIDE.
--- NOTE | 2020-09-09 15:57 | OP ---
PATIENT NAME: AMINAH AAYLA MEDICAL RECORD: [id number] :34 LOCATION:D.[facility] [id number] ADMISSION DATE:08/31/20 SURGEON: RALPH LOYOLA MD DATE OF OPERATION: 09/08/2020 SURGEON: Ralph Loyola MD. PROCEDURE PERFORMED: Right tube thoracostomy. INDICATION: Recurrent right pneumothorax. ANESTHESIA: Monitored anesthesia care with intravenous sedation and 1% local Xylocaine. SPECIMENS: None. COMPLICATIONS: None. BLOOD LOSS: None. CONDITION: Stable. SURGICAL FINDINGS: Good apical position by fluoroscopy. DESCRIPTION OF PROCEDURE: The patient was brought to the operating suite. Intravenous sedation was given. The right chest was prepped and draped. Working at approximately the anterior axillary line in the 4th interspace, the 1 cm skin incision was made, spread down into the pleural cavity. Then, the trocar, 28-[place] Lucian chest tube was placed in the apex under fluoroscopic guidance and sutured into place, connected to the Pleur-Evac. Tube was sutured into place and dressing was placed. The old chest tube was removed and the site was closed with nylon. No apparent complication. Chest x-ray pending. TRANSINT:[id number] Voice Confirmation ID: [id number] DOCUMENT ID: [id number] RALPH LOYOLA MD at 1557 CC: SANTA VALLEJO MD [id number] DICTATION DATE: 09/08/20 1747 MASTER PLANNER: 09/08/20 2333 ADM IN [id number] [place] [address]
--- NOTE | 2020-09-09 18:30 | NUR ---
PATIENT IN BED WITH NO COMPLAINTS OR SIGNS OF DISTRESS. ATE A SMALL AMOUNT OF DINNER. CT INTACT TO 20 CM SUCTION. IV INTACT. CALL LIGHT WITHIN REACH.
--- NOTE | 2020-09-09 23:30 | NUR ---
A&O X 3. REORIENTED TO SITUATION. INCONTINENT VOID EVIDENT, PARTIAL LINEN CHANGE AND AZUCENA CARE PROVIDED. IV TO LEFT FOREARM OUT, CATH INTACT. 22G RESITED TO LEFT FOREARM BY RN, 2ND ATTEMPT. PAIN OF 6/10 REPORTED TO RIGHT CHESTTUBE INSERTION SITE. DRESSING REINFORCED WITH TAPE. CTM.
[2020-09-10 01:49] VITALS: BP 121/62
--- NOTE | 2020-09-10 06:10 | NUR ---
I have reviewed this patient and I concur with the Shift Assessment completed by the Licensed Practical Nurse today this shift.
[2020-09-10 06:30] VITALS: BP 151/77
[2020-09-10 06:52] LABS: HEMATOCRIT 31.9 % (36.0-48.0); MCH 25.2 pg (26.0-34.0); MCHC 31.3 g/dL (31.0-37.0); MCV 80.4 fL (80.0-100.0); MEAN PLATELET VOLUME 11.3 fL (7.4-10.4); RBC 3.97 10x6/uL (4.00-5.40); RDW 18.9 % (11.5-14.5)
[2020-09-10 07:07] LABS: ALBUMIN 2.1 g/dL (3.4-5.0); ALKALINE PHOSPHATASE 67 U/L (30-120); ALT (SGPT) 10 U/L (10-68); BILIRUBIN - TOTAL 0.34 mg/dL (0.2-1.3); CALC OSMOLALITY 271 mosm/kg (275-300); CALCIUM 8.8 mg/dL (8.5-10.1); CARBON DIOXIDE 27.6 mmol/L (21.0-32.0); CHLORIDE - SERUM 104 mmol/L (98-107); CREATININE - SERUM 0.6 mg/dL (0.6-1.3); GLUCOSE 79 mg/dL (74-106); POTASSIUM - SERUM 3.5 mmol/L (3.5-5.1); PROTEIN - SERUM 7.1 g/dL (6.4-8.2); SODIUM 137 mmol/L (136-145); UREA NITROGEN 11 mg/dL (7-18); eGFR NON AFRICAN AMERICAN > 90 mL/min (90-120)
[2020-09-10 07:08] LABS: WBC 4.5 10x3/uL (4.8-10.8)
--- NOTE | 2020-09-10 07:33 | NUR ---
RESTING COMFORTABLY IN BED WITH EYES CLOSED, EASILY AROUSED TO SPEECH. CURRENTLY RCVING BREATHING TREATMENT. IV LOCATED TO LEFT FA RUNNING PLASMALITE @ 30ML/HR. CHEST TUBE PRESENT TO RIGHT SIDE. NO CURRENT S/S OF DISTRESS, DENIES CURRENT NEEDS, WILL CONT TO MONITOR.
[2020-09-10 09:23] VITALS: BP 139/88
--- NOTE | 2020-09-10 10:00 | NUR ---
PT WET, CLEANED UP AND LINENS/GOWN CHANGED.
--- NOTE | 2020-09-10 13:00 | NUR ---
PT WET, LINENS/GOWN CHANGED.
[2020-09-10 13:30] VITALS: BP 140/82
[2020-09-10 17:14] VITALS: BP 139/91
[2020-09-10 20:00] VITALS: BP 140/89
[2020-09-11] VITALS: BP 140/81
--- NOTE | 2020-09-11 01:31 | NUR ---
I have reviewed this patient and I concur with the Shift Assessment completed by the Licensed Practical Nurse today this shift.
[2020-09-11 04:00] VITALS: BP 142/86
[2020-09-11 07:30] LABS: ALBUMIN 2.1 g/dL (3.4-5.0); ALKALINE PHOSPHATASE 68 U/L (30-120); ALT (SGPT) 8 U/L (10-68); BILIRUBIN - TOTAL 0.44 mg/dL (0.2-1.3); CALC OSMOLALITY 272 mosm/kg (275-300); CALCIUM 8.6 mg/dL (8.5-10.1); CHLORIDE - SERUM 103 mmol/L (98-107); CREATININE - SERUM 0.6 mg/dL (0.6-1.3); GLUCOSE 97 mg/dL (74-106); POTASSIUM - SERUM 3.4 mmol/L (3.5-5.1); PROTEIN - SERUM 7.1 g/dL (6.4-8.2); SODIUM 137 mmol/L (136-145); UREA NITROGEN 9 mg/dL (7-18); eGFR NON AFRICAN AMERICAN > 90 mL/min (90-120)
[2020-09-11 07:35] LABS: BASOPHILS 0.8 % (0-2); EOSINOPHILS 5.3 % (0-7); HEMATOCRIT 32.7 % (36.0-48.0); HEMOGLOBIN 10.3 g/dL (12-16); IMMATURE GRANULOCYTES 0.3 % (0-5); LYMPHOCYTE ABS# 1.04 10x3/uL (1.18-3.74); LYMPHOCYTES 27.6 % (15-50); MCH 25.1 pg (26.0-34.0); MCHC 31.5 g/dL (31.0-37.0); MCV 79.8 fL (80.0-100.0); MEAN PLATELET VOLUME 10.9 fL (7.4-10.4); NEUTROPHIL ABS# 1.81 10x3/uL (1.56-6.13); PLATELET COUNT 266 10x3/uL (130-400); RDW 18.8 % (11.5-14.5); WBC 3.8 10x3/uL (4.8-10.8)
[2020-09-11 09:10] VITALS: BP 155/85
[2020-09-11 13:37] VITALS: BP 142/74
[2020-09-11 17:03] VITALS: BP 133/100
--- NOTE | 2020-09-11 18:28 | NUR ---
ORDERS TO OBTAIN CONSENT FOR APICAL CHEST TUBE PLACEMENT IN INTERVENTIONAL RADIOLOGY ON 09/12/20. PT POA STATES THAT SHE NEVER SPOKE WITH PHYSICIAN REGARDING PROCEDURE AND CONSENT CAN NOT BE GIVEN WITHOUT HER PERMISSION. WILL PASS THIS INFORMATION IN REPORT.
[2020-09-11 20:00] VITALS: BP 144/84
--- NOTE | 2020-09-11 20:30 | NUR ---
PT SITTING UP IN BEDSIDE CHAIR. ORIENTED TO SELF ONLY. CHAIR ALARM ON. CHEST TUBE TO RIGHT SIDE TO WATER SEAL. PT DENIES NEEDS AT THIS TIME. POA DAUGHTER CALLED AND STATES SHE HAS NOT SPOKEN WITH ANY DOCTOR RECENTLY AND THAT HER MOTHER IS OLDER AND SHE DOES NOT THINK ALL THESE CHEST TUBES ARE IN HER BEST INTEREST AND WANTS TO SPEAK WITH DOCTORS IN AM ABOUT OTHER OPTIONS THAN PLACING ANOTHER CHEST TUBE. INFORMED DAUGHTER I WOULD PASS TO NEXT SHIFT SHE WOULD LIKE DOCTORS TO CALL HER
[2020-09-12] VITALS: BP 158/78
--- NOTE | 2020-09-12 01:00 | NUR ---
PT CONTINUOUSLY TRYING TO CRAWL OUT OF BED. HEATHER ALARM ON. PT PLACED BACK IN BED MULTIPLE TIMES. PT PULLED IV OUT. THIS NURSE ATTEMPTED TO START IV, UNSUCCESSFUL. CALLED ICU AND THEY ATTEMPTED X2 TO START IV BUT PT WAS COMBATIVE AND KEPT STATING SHE DID NOT WANT ONE AND KEPT TRYING TO PULL IT OUT NURSE WAS TRYING TO GET IT STARTED. AFTER TWO ATTEMPTS SHE SAID WE WERE NOT STICKING HER AGAIN AND THAT SHE IS "DONE WITH ALL THIS."
[2020-09-12 04:00] VITALS: BP 157/78
[2020-09-12 07:11] LABS: ALBUMIN 2.2 g/dL (3.4-5.0); ALKALINE PHOSPHATASE 71 U/L (30-120); CALC OSMOLALITY 268 mosm/kg (275-300); CALCIUM 8.6 mg/dL (8.5-10.1); CARBON DIOXIDE 26.9 mmol/L (21.0-32.0); CHLORIDE - SERUM 102 mmol/L (98-107); CREATININE - SERUM 0.6 mg/dL (0.6-1.3); GLUCOSE 81 mg/dL (74-106); POTASSIUM - SERUM 3.3 mmol/L (3.5-5.1); PROTEIN - SERUM 7.4 g/dL (6.4-8.2); SODIUM 136 mmol/L (136-145); UREA NITROGEN 7 mg/dL (7-18); eGFR NON AFRICAN AMERICAN > 90 mL/min (90-120)
[2020-09-12 07:13] LABS: ALT (SGPT) 11 U/L (10-68)
[2020-09-12 07:16] LABS: APTT 28.8 SECONDS (22.8-39.4)
[2020-09-12 07:17] LABS: INR 1.18 (0.85-1.17); PROTIME 13.9 SECONDS (11.6-15.0)
[2020-09-12 07:32] LABS: BASOPHILS 0.4 % (0-2); EOSINOPHILS 5.2 % (0-7); HEMATOCRIT 31.7 % (36.0-48.0); HEMOGLOBIN 10.2 g/dL (12-16); IMMATURE GRANULOCYTES 0.2 % (0-5); LYMPHOCYTES 30.2 % (15-50); MCH 25.7 pg (26.0-34.0); MCHC 32.2 g/dL (31.0-37.0); MCV 79.8 fL (80.0-100.0); MEAN PLATELET VOLUME 11.2 fL (7.4-10.4); MONOCYTES 14.7 % (2-11); NEUTROPHIL ABS# 2.29 10x3/uL (1.56-6.13); NEUTROPHILS 49.3 % (40-80); PLATELET COUNT 279 10x3/uL (130-400); RBC 3.97 10x6/uL (4.00-5.40); RDW 18.5 % (11.5-14.5); WBC 4.6 10x3/uL (4.8-10.8)
[2020-09-12 08:37] VITALS: BP 165/79
--- NOTE | 2020-09-12 12:19 | NUR ---
REHAB PRESCREEN NOTED. WE ARE FOLLOWING THE PATIENT AT THIS TIME. [facility] AND SHE LOOKS STABLE. AGAIN, THANK YOU FOR THE REFERRAL. WALESKA MACHADO RN CLINICAL LIAISON, INPATIENT REHAB.
--- NOTE | 2020-09-12 12:19 | NUR ---
Nutrition reassessment: Pt with CT in place Currently NPO for procedure pt with diet order of low sodium since admission; po intake continues to be poor; ~25-50% of meals, NPO for several meals also Labs reviewed wT: 144# No BM charted; pt on colace and recieved a dose today Estimated nutritional needs remain the same as initial assessment on 09/05/20. Nutrition diagnosis: Inadequate oral intake R/T advanced age with confusion AEB po intake continues to be < 75% of meals at this time. Nutrition goals: - PO intake =/> 75% of meals, snacks - Meet est fluid needs - pt currently has a fluid balance - Stable dry wt Interventions: Will continue to provide food choices and honor food preferences. Recommendations: - Appetite stimulant if physician agrees - Will order Ensure with meals - Change diet order to regular as tolerated to encourage increased po intake. RDN follow-up on progress toward nutrition goals: 09/16/20
[2020-09-12 12:52] VITALS: BP 162/66
--- NOTE | 2020-09-12 14:24 | NUR ---
OT NOTE: PT ALERT.. PLEASANTLY CONFUSED WITH THIS THERAPIST. HOWEVER, CHART REVIEW NOTES THAT PT WAS AGITATED LAST NIGHT. PT REQUIRED MOD ASSIST FOR SUPINE TO SIT; MOD ASSIST FOR SIT TO STAND; ABLE TO TAKE A FEW STEPS FORWARD AND BACKWARDS WITH MIN ASSIST X 2.. SLOW PROCESSING FOR COMMANDS. EXTENSIVE ASSIST FOR REPOSITIONING IN BED. DISCUSSED PT STATUS WITH DTR.. CONTINUE TO RECOMMEND IP REHAB PRIOR TO DC HOME.. DTR WILL BE ASSISTING WITH PTS CARE AT HOME, AND PT NEEDS TO BE STRONGER PRIOR TO DC FLORENTINO FIGUEROA OTR/L
[2020-09-12 17:31] VITALS: BP 151/84
--- NOTE | 2020-09-12 20:40 | NUR ---
ASSIST TO BR AND BACK TO BED. CHEST TUBE PATENT TO RIGHT CHEST WITH CLAMPS INTACT.NO DISTRESS NOTED. CL IN REACH.BED ALARM ON
--- NOTE | 2020-09-13 02:41 | NUR ---
I have reviewed this patient and I concur with the Shift Assessment completed by the Licensed Practical Nurse today this shift.
[2020-09-13 05:40] LABS: EOSINOPHILS 6.9 % (0-7); HEMATOCRIT 31.4 % (36.0-48.0); HEMOGLOBIN 10.2 g/dL (12-16); LYMPHOCYTE ABS# 1.25 10x3/uL (1.18-3.74); LYMPHOCYTES 30.9 % (15-50); MCH 25.6 pg (26.0-34.0); MCHC 32.5 g/dL (31.0-37.0); MCV 78.9 fL (80.0-100.0); MEAN PLATELET VOLUME 10.6 fL (7.4-10.4); MONOCYTES 17.3 % (2-11); NEUTROPHIL ABS# 1.78 10x3/uL (1.56-6.13); NEUTROPHILS 43.9 % (40-80); PLATELET COUNT 257 10x3/uL (130-400); RBC 3.98 10x6/uL (4.00-5.40); RDW 18.2 % (11.5-14.5); WBC 4.1 10x3/uL (4.8-10.8)
[2020-09-13 05:53] LABS: ALBUMIN 2.1 g/dL (3.4-5.0); ALKALINE PHOSPHATASE 68 U/L (30-120); ALT (SGPT) 12 U/L (10-68); CALC OSMOLALITY 273 mosm/kg (275-300); CALCIUM 8.4 mg/dL (8.5-10.1); CARBON DIOXIDE 26.2 mmol/L (21.0-32.0); CHLORIDE - SERUM 105 mmol/L (98-107); CREATININE - SERUM 0.5 mg/dL (0.6-1.3); GLUCOSE 77 mg/dL (74-106); POTASSIUM - SERUM 3.5 mmol/L (3.5-5.1); PROTEIN - SERUM 6.5 g/dL (6.4-8.2); SODIUM 139 mmol/L (136-145); UREA NITROGEN 5 mg/dL (7-18); eGFR NON AFRICAN AMERICAN > 90 mL/min (90-120)
[2020-09-13 08:07] VITALS: BP 152/83
[2020-09-13 12:00] VITALS: BP 146/74
[2020-09-13 17:29] VITALS: BP 150/82
[2020-09-13 20:00] VITALS: BP 122/73
[2020-09-14] VITALS: BP 140/81
[2020-09-14 04:00] VITALS: BP 123/74
--- NOTE | 2020-09-14 05:52 | NUR ---
Pt is in bed resting at this time. Pt has had no c/o pain/discomfort. Pt does not recall time or situation but, otherwise oriented to person and place. Daughter did call last evening with update given after receiving correct passcode. Pt has slept through the night.
[2020-09-14 08:32] LABS: EOSINOPHILS 5.5 % (0-7); HEMATOCRIT 34.3 % (36.0-48.0); HEMOGLOBIN 10.9 g/dL (12-16); IMMATURE GRANULOCYTES 0.2 % (0-5); LYMPHOCYTE ABS# 1.39 10x3/uL (1.18-3.74); LYMPHOCYTES 33.4 % (15-50); MCH 25.4 pg (26.0-34.0); MCHC 31.8 g/dL (31.0-37.0); MEAN PLATELET VOLUME 10.1 fL (7.4-10.4); MONOCYTES 14.9 % (2-11); NEUTROPHIL ABS# 1.87 10x3/uL (1.56-6.13); PLATELET COUNT 266 10x3/uL (130-400); RBC 4.29 10x6/uL (4.00-5.40); RDW 18.4 % (11.5-14.5); WBC 4.2 10x3/uL (4.8-10.8)
[2020-09-14 08:55] LABS: ALBUMIN 2.3 g/dL (3.4-5.0); ALKALINE PHOSPHATASE 77 U/L (30-120); BILIRUBIN - TOTAL 0.33 mg/dL (0.2-1.3); CALC OSMOLALITY 268 mosm/kg (275-300); CALCIUM 8.6 mg/dL (8.5-10.1); CARBON DIOXIDE 24.3 mmol/L (21.0-32.0); CHLORIDE - SERUM 103 mmol/L (98-107); CREATININE - SERUM 0.6 mg/dL (0.6-1.3); GLUCOSE 84 mg/dL (74-106); PROTEIN - SERUM 7.6 g/dL (6.4-8.2); SODIUM 136 mmol/L (136-145); UREA NITROGEN 6 mg/dL (7-18); eGFR NON AFRICAN AMERICAN > 90 mL/min (90-120)
[2020-09-14 09:16] LABS: ALT (SGPT) 8 U/L (10-68)
[2020-09-14 09:31] VITALS: BP 139/72
[2020-09-14 13:31] VITALS: BP 152/88
[2020-09-14 17:23] VITALS: BP 143/81
[2020-09-14 20:00] VITALS: BP 147/89
[2020-09-15 04:00] VITALS: BP 147/78
[2020-09-15 06:06] LABS: BASOPHILS 0.8 % (0-2); EOSINOPHILS 5.7 % (0-7); HEMATOCRIT 32.8 % (36.0-48.0); HEMOGLOBIN 10.4 g/dL (12-16); IMMATURE GRANULOCYTES 0.5 % (0-5); LYMPHOCYTE ABS# 1.36 10x3/uL (1.18-3.74); LYMPHOCYTES 35.5 % (15-50); MCH 25.4 pg (26.0-34.0); MCHC 31.7 g/dL (31.0-37.0); MCV 80.2 fL (80.0-100.0); MEAN PLATELET VOLUME 10.8 fL (7.4-10.4); MONOCYTES 14.9 % (2-11); NEUTROPHIL ABS# 1.63 10x3/uL (1.56-6.13); NEUTROPHILS 42.6 % (40-80); PLATELET COUNT 289 10x3/uL (130-400); RBC 4.09 10x6/uL (4.00-5.40); RDW 18.7 % (11.5-14.5); WBC 3.8 10x3/uL (4.8-10.8)
[2020-09-15 06:30] LABS: ALBUMIN 2.4 g/dL (3.4-5.0); ALKALINE PHOSPHATASE 74 U/L (30-120); BILIRUBIN - TOTAL 0.37 mg/dL (0.2-1.3); CALC OSMOLALITY 275 mosm/kg (275-300); CALCIUM 9.2 mg/dL (8.5-10.1); CHLORIDE - SERUM 106 mmol/L (98-107); CREATININE - SERUM 0.6 mg/dL (0.6-1.3); GLUCOSE 75 mg/dL (74-106); PROTEIN - SERUM 7.5 g/dL (6.4-8.2); SODIUM 140 mmol/L (136-145); UREA NITROGEN 6 mg/dL (7-18); eGFR NON AFRICAN AMERICAN > 90 mL/min (90-120)
[2020-09-15 06:31] LABS: ALT (SGPT) 12 U/L (10-68); POTASSIUM - SERUM 3.6 mmol/L (3.5-5.1)
[2020-09-15 09:11] VITALS: BP 161/64
--- NOTE | 2020-09-15 09:18 | NUR ---
ASSESSMENT PER FLOW SHEET. PATIENT IS WITHOUT DISTRESS.FALL PREVENTION WITH HEATHER MAT. HEATHER ON AND WORKING.FAMILY TO VISIT.
[2020-09-15 12:58] VITALS: BP 128/79
--- NOTE | 2020-09-15 14:07 | NUR ---
AUTHORIZATION PROCESS HAS BEEN INITIATED. WE WILL WAIT ON DETERMINATION FOR ACCEPTANCE TO INPATIENT REHAB. WALESKA MACHADO RN CLINICAL LIAISON, INPATIENT REHAB.
--- NOTE | 2020-09-15 16:00 | NUR ---
OT NOTE: THE PT COMPLETED SUPINE TO SIT WITH MIN A. PT COMPLETED SIT TO STAND WITH MIN A. PT COMPLETED ADL MOB WITH MIN A. PT REQUIRED TOTAL A FOR KOLBY SOCKS. PT COMPLETED FACE AND HAND HYGIENE WITH SETUP. [phone] THANK YOU,HAI CHAVES
[2020-09-15 18:22] VITALS: BP 149/93
[2020-09-15 20:00] VITALS: BP 152/85
[2020-09-16 04:00] VITALS: BP 152/90
[2020-09-16 06:34] LABS: BASOPHILS 0.5 % (0-2); EOSINOPHILS 6.1 % (0-7); HEMATOCRIT 33.5 % (36.0-48.0); HEMOGLOBIN 10.9 g/dL (12-16); IMMATURE GRANULOCYTES 0.5 % (0-5); LYMPHOCYTE ABS# 1.32 10x3/uL (1.18-3.74); LYMPHOCYTES 33.7 % (15-50); MCH 25.8 pg (26.0-34.0); MCHC 32.5 g/dL (31.0-37.0); MCV 79.4 fL (80.0-100.0); MEAN PLATELET VOLUME 10.9 fL (7.4-10.4); MONOCYTES 15.1 % (2-11); NEUTROPHIL ABS# 1.73 10x3/uL (1.56-6.13); NEUTROPHILS 44.1 % (40-80); PLATELET COUNT 328 10x3/uL (130-400); RBC 4.22 10x6/uL (4.00-5.40); RDW 18.5 % (11.5-14.5); WBC 3.9 10x3/uL (4.8-10.8)
[2020-09-16 07:10] LABS: ALBUMIN 2.5 g/dL (3.4-5.0); ALKALINE PHOSPHATASE 78 U/L (30-120); ALT (SGPT) 12 U/L (10-68); BILIRUBIN - TOTAL 0.35 mg/dL (0.2-1.3); CALC OSMOLALITY 276 mosm/kg (275-300); CALCIUM 9.2 mg/dL (8.5-10.1); CARBON DIOXIDE 24.5 mmol/L (21.0-32.0); CHLORIDE - SERUM 106 mmol/L (98-107); CREATININE - SERUM 0.7 mg/dL (0.6-1.3); GLUCOSE 82 mg/dL (74-106); POTASSIUM - SERUM 3.4 mmol/L (3.5-5.1); SODIUM 141 mmol/L (136-145); UREA NITROGEN 5 mg/dL (7-18); eGFR NON AFRICAN AMERICAN 83 mL/min (90-120)
[2020-09-16 08:17] VITALS: BP 166/87
--- NOTE | 2020-09-16 09:38 | NUR ---
ASSESSMENT PER FLOW SHEET. PATIENT IS WITHOUT DISTRESS.FALL PREVENTION IN PLACE WITH HEATHER MAT. HEATHER MAT ON AND WORKING.DOOR OPEN
--- NOTE | 2020-09-16 12:35 | NUR ---
Nutrition follow-up: Visited with pt during breakfast. Pt with no c/o at this time; continues to report decreased appetite. Diet order: low sodium PO intake continues to be ~25% average at most meals Labs reviewed No new wt to assess; no BM charted; pt is on stool softener. PO intake may be poor due to no BM recorded Recommendations: Appetite stimulant More aggressive bowel regimen RDN follow-up: 09/18/20
[2020-09-16 12:48] VITALS: BP 166/87
[2020-09-16 17:22] VITALS: BP 153/93
--- NOTE | 2020-09-16 19:10 | NUR ---
OT NOTE: PT PERFORMED MUCH BETTER TODAY. BED MOB WITH MIN ASSIST; ABLE TO WASH FACE AND HANDS WITH SET UP; PT WAS INCONT OF BLADDER AND REQUIRED MOD ASSIST FOR TOILET HYGIENE; MAX ASSIST TO INITIATE DONNING BRIEF.. SIT TO STAND WITH MIN/MOD ASSIST AND PT WAS ABLE TO PULL UP BRIEF WITH MIN ASSIST; ABLE TO AMB A FEW STEPS FROM BED TO CHAIR WITH WALKER AND MIN ASSIST WHILE LINENS WERE CHANGED. AMB BACK TO BED WITH MIN ASSSIST. REUQIRED MOD ASSIST FOR LE MGMT FOR SIT TO SUPINE. CONT TO RECOMMEND IP REHAB FLORENTINO RODRÍGUEZ, OTR/L [id number]
[2020-09-16 20:00] VITALS: BP 148/89
[2020-09-17 04:00] VITALS: BP 156/70
--- NOTE | 2020-09-17 06:13 | NUR ---
PT HAS REMAINED IN BED THIS NIGHT WITHOUT C/O PAIN/DISCOMFORT.
[2020-09-17 06:39] LABS: BASOPHILS 0.9 % (0-2); EOSINOPHILS 5.3 % (0-7); HEMATOCRIT 30.2 % (36.0-48.0); HEMOGLOBIN 9.5 g/dL (12-16); LYMPHOCYTE ABS# 1.23 10x3/uL (1.18-3.74); MCH 25.1 pg (26.0-34.0); MCHC 31.5 g/dL (31.0-37.0); MCV 79.9 fL (80.0-100.0); MEAN PLATELET VOLUME 11.1 fL (7.4-10.4); MONOCYTES 17.5 % (2-11); NEUTROPHIL ABS# 1.38 10x3/uL (1.56-6.13); NEUTROPHILS 40.3 % (40-80); PLATELET COUNT 311 10x3/uL (130-400); RBC 3.78 10x6/uL (4.00-5.40); RDW 18.7 % (11.5-14.5); WBC 3.4 10x3/uL (4.8-10.8)
[2020-09-17 07:12] LABS: ALBUMIN 2.1 g/dL (3.4-5.0); ALKALINE PHOSPHATASE 72 U/L (30-120); ALT (SGPT) 11 U/L (10-68); BILIRUBIN - TOTAL 0.18 mg/dL (0.2-1.3); CALC OSMOLALITY 276 mosm/kg (275-300); CALCIUM 8.8 mg/dL (8.5-10.1); CARBON DIOXIDE 27.1 mmol/L (21.0-32.0); CHLORIDE - SERUM 105 mmol/L (98-107); CREATININE - SERUM 0.6 mg/dL (0.6-1.3); GLUCOSE 112 mg/dL (74-106); POTASSIUM - SERUM 3.4 mmol/L (3.5-5.1); PROTEIN - SERUM 6.9 g/dL (6.4-8.2); SODIUM 140 mmol/L (136-145); UREA NITROGEN 5 mg/dL (7-18); eGFR NON AFRICAN AMERICAN > 90 mL/min (90-120)
[2020-09-17 08:00] VITALS: BP 154/70
--- NOTE | 2020-09-17 08:15 | NUR ---
PATIENT IN BED WITH NO COMPLAINTS OR SIGNS OF DISTRESS. CALL LIGHT WITHIN REACH. BA ON.
--- NOTE | 2020-09-17 12:00 | NUR ---
PATIENT SITTING UP IN CHAIR EATING LUNCH. NO COMPLAINTS OR SIGNS OF DISTRESS. CA ON. CALL LIGHT WITHIN REACH.
--- NOTE | 2020-09-17 14:38 | NUR ---
I HAVE SPOKE WITH TRACIE Weber AT [facility]. SHE STATED THAT THE PATIENTS CASE IS STILL IN PROCESSING WITH THE NURSE, AND IT CAN BE ANOTHER 24-48 HOURS BEFORE WE HAVE DETERMINATION. WE WILL CONTINUE TO FOLLOW. WALESKA MACHADO RN CLINICAL LIAISON, INPATIENT REHAB.
[2020-09-17] MEDS ORDERED: ATROVENT 0.02%2.5 ML UPD (15:39)
--- NOTE | 2020-09-17 16:18 | MORECARE ---
CASE MANAGEMENT DISCHARGE SUMMARY PATIENT: AMINAH AYALA UNIT: [id number] ADM DATE: 08/31/20 AGE: 89 : 32 SEX: F ROOM/BED: 2204 AUTHOR: OSWALDO,DOC PHYSICIAN: REFERRING PHYSICIAN: CLARENCE HINOJOSA MD DATE OF SERVICE: 09/17/20 Case Management Discharge Planning Summary DCP REVIEW SUMMARY ANTICIPATED D/C DATE: EXPECTED LOS : CASE STATUS: DCP Initiated INITIAL REVIEW: 08/31/2020 INITIAL REVIEWER: Priscila Cevallos FINAL DISCHARGE DISPOSITION: 62 : Discharged/Trans to Rehab Facility Including Distinct Units of a Hospital FINAL REVIEWER: FINAL REVIEW DATE: DCP Focus Questions & Answers QUESTION: ANSWER : PATIENT: AMINAH AYALA ENCOUNTER: [id number] MEDICAL RECORD#: [id number] ADMISSION DATE: 08/31/2020 DISCHARGE DATE: ATTENDING MD: CLARENCE CEDEÑO : AGE: 89 MARITAL STATUS: W DC PLAN ID: [id number] FACILITY: [facility] PRINTED ON: 09/17/20 16:17 CT All edits/amendments must be made on the electronic document DICTATION DATE: 09/17/201616 SKI PATROLLER: VENKAT 09/17/201616 RPT#: [id number] DC DATE: STATUS: ADM IN [facility] [address] [place] [address] END OF REPORT
--- NOTE | 2020-09-17 16:30 | MORECARE ---
CASE MANAGEMENT DISCHARGE SUMMARY PATIENT: AMINAH AYALA UNIT: [id number] ADM DATE: 08/31/20 AGE: 89 : 32 SEX: F ROOM/BED: D.2204 AUTHOR: OSWALDO,DOC PHYSICIAN: REFERRING PHYSICIAN: CLARENCE HINOJOSA MD DATE OF SERVICE: 09/17/20 Case Management Discharge Planning Summary COMMENTS ENTERED DATE: 09/17/20 16:16 CT COMMENT TYPE: Discharge Planning REVIEWER: Priscila Cevallos Patient will be discharging to inpatient rehab today at [facility]. I have called and spoke with her daughter to let her know. IMM served and explained to the patient. Patient's daughter denied any needs or issues DCP REVIEW SUMMARY ANTICIPATED D/C DATE: EXPECTED LOS : CASE STATUS: DCP Initiated INITIAL REVIEW: 08/31/2020 INITIAL REVIEWER: Priscila Cevallos FINAL DISCHARGE DISPOSITION: 62 : Discharged/Trans to IP Rehab Facility Including Distinct Units of a Hospital FINAL REVIEWER: FINAL REVIEW DATE: DCP Focus Questions & Answers QUESTION: ANSWER : PATIENT: AMINAH AYLAA ENCOUNTER: [id number] MEDICAL RECORD#: [id number] ADMISSION DATE: 08/31/2020 DISCHARGE DATE: ATTENDING MD: CLARENCE CEDEÑO : AGE: 89 MARITAL STATUS: W DC PLAN ID: [id number] FACILITY: [facility] PRINTED ON: 09/17/20 16:29 CT All edits/amendments must be made on the electronic document DICTATION DATE: 09/17/201628 METAL CUTTER: VENKAT 09/17/201628 RPT#: [id number] DC DATE: STATUS: ADM IN [facility] [address] [place] [address] END OF REPORT
--- NOTE | 2020-09-17 16:35 | NUR ---
OT NOTE: (AM) PT COMPLETED SUPINE TO SIT WITH MIN-MOD A. PT COMPLETED EOB SITTING WITH CGA. PT REQUIRED TOTAL A FOR KOLBY SOCKS. PT REQUIRED MAX A FOR LB HYGIENE. PT COMPLETED BED TO CHAIR TSF WITH MIN A. (PM) PT COMPLETED BED MOB TASKS WITH MIN A. PT COMPLETED SIDE ROLLING WITH MIN A. PT USED SIDE RAILS TO ASSIST WITH SIDE ROLLING. PT COMPLETED FACE AND HAND HYGIENE WITH SETUP. [phone] JACQUELIN CAT COTA
--- NOTE | 2020-09-17 17:30 | NUR ---
PATIENT SITTING UP IN CHAIR EATING DINNER. NO COMPLAINTS. CALL EVELYNW PHILIP WEBB.
--- NOTE | 2020-09-17 19:14 | NUR ---
REPORT CALLED TO GAUTAM IN REHAB. ALSO CALLED AND NOTIFED PATIENTS DAUGHTER SOL WATSON THAT PATIENT IS MOVING TO ROOM 1114B.
--- NOTE | 2020-09-17 19:26 | MORECARE ---
CASE MANAGEMENT DISCHARGE SUMMARY PATIENT: AMINAH AYALA UNIT: [id number] ADM DATE: 08/31/20 AGE: 89 : 32 SEX: F ROOM/BED: D.2204 AUTHOR: OSWALDO,DOC PHYSICIAN: REFERRING PHYSICIAN: CLARENCE HINOJOSA MD DATE OF SERVICE: 09/17/20 Case Management Discharge Planning Summary COMMENTS ENTERED DATE: 09/17/20 16:16 CT COMMENT TYPE: Discharge Planning REVIEWER: Priscila Cevallos Patient will be discharging to inpatient rehab today at [facility]. I have called and spoke with her daughter to let her know. IMM served and explained to the patient. Patient's daughter denied any needs or issues DCP REVIEW SUMMARY ANTICIPATED D/C DATE: EXPECTED LOS : CASE STATUS: DCP Initiated INITIAL REVIEW: 08/31/2020 INITIAL REVIEWER: Priscila Cevallos FINAL DISCHARGE DISPOSITION: 62 : Discharged/Trans to IP Rehab Facility Including Distinct Units of a Hospital FINAL REVIEWER: FINAL REVIEW DATE: DCP Focus Questions & Answers QUESTION: ANSWER : PATIENT: AMINAH AYALA ENCOUNTER: [id number] MEDICAL RECORD#: [id number] ADMISSION DATE: 08/31/2020 DISCHARGE DATE: 09/17/2020 ATTENDING MD: CLARENCE CEDEÑO : AGE: 89 MARITAL STATUS: W DC PLAN ID: [id number] FACILITY: [facility] PRINTED ON: 09/17/20 19:26 CT All edits/amendments must be made on the electronic document DICTATION DATE: 09/17/201925 HOISTING ENGINE OPERATOR: VENKAT 09/17/201925 RPT#: [id number] DC DATE:09/17/20 STATUS: DIS IN [facility] [address] [place] [address] END OF REPORT
--- NOTE | 2020-09-18 08:17 | MORECARE ---
CASE MANAGEMENT DISCHARGE SUMMARY PATIENT: AMINAH AYALA UNIT: [id number] ADM DATE: 08/31/20 AGE: 89 : 32 SEX: F ROOM/BED: D.2204 AUTHOR: OSWALDO,DOC PHYSICIAN: REFERRING PHYSICIAN: CLARENCE HINOJOSA MD DATE OF SERVICE: 09/18/20 Case Management Discharge Planning Summary COMMENTS ENTERED DATE: 09/17/20 16:16 CT COMMENT TYPE: Discharge Planning REVIEWER: Priscila Cevallos Patient will be discharging to inpatient rehab today at [facility]. I have called and spoke with her daughter to let her know. IMM served and explained to the patient. Patient's daughter denied any needs or issues DCP REVIEW SUMMARY ANTICIPATED D/C DATE: EXPECTED LOS : CASE STATUS: DCP Initiated INITIAL REVIEW: 08/31/2020 INITIAL REVIEWER: Priscila Cevallos FINAL DISCHARGE DISPOSITION: 62 : Discharged/Trans to IP Rehab Facility Including Distinct Units of a Hospital FINAL REVIEWER: FINAL REVIEW DATE: DCP Focus Questions & Answers QUESTION: ANSWER : PATIENT: AMINAH AYALA ENCOUNTER: [id number] MEDICAL RECORD#: [id number] ADMISSION DATE: 08/31/2020 DISCHARGE DATE: 09/17/2020 ATTENDING MD: CLARENCE CEDEÑO : AGE: 89 MARITAL STATUS: W DC PLAN ID: [id number] FACILITY: [facility] PRINTED ON: 09/18/20 8:16 CT All edits/amendments must be made on the electronic document DICTATION DATE: 09/18/20815 LINE UP EXAMINER: VENKAT 09/18/20815 RPT#: [id number] DC DATE:09/17/20 STATUS: DIS IN [facility] [address] [place] [address] END OF REPORT
== END 2020-09-17 19:18 | DRG 200 ==
LOC: D.ER 17:08 → D.M2 20:29 → D.CVICU 20:29 → D.M2 21:04 → D.CVICU 09-05 12:11 → D.MS 09-09 10:27
PROVIDERS: Family Medicine; Radiology Diagnostic Radiology; Thoracic Surgery (Cardiothoracic Vascular Surgery); ADMIT Emergency Medicine; ATTEND Emergency Medicine
PROC: 0W9930Z Drainage of Right Pleural Cavity with Drainage Device, Percutaneous Approach (ICD-10-PCS; principal; 2020-08-31)
PROC: 0W9930Z Drainage of Right Pleural Cavity with Drainage Device, Percutaneous Approach (ICD-10-PCS; 2020-09-05)
PROC: 0W9930Z Drainage of Right Pleural Cavity with Drainage Device, Percutaneous Approach (ICD-10-PCS; 2020-09-08)
DX: J93.9 Pneumothorax, unspecified (principal); I48.20 Chronic atrial fibrillation, unspecified; I50.22 Chronic systolic (congestive) heart failure; J98.11 Atelectasis; J90 Pleural effusion, not elsewhere classified; I11.0 Hypertensive heart disease with heart failure; D64.9 Anemia, unspecified; Z86.73 Personal history of transient ischemic attack (TIA), and cerebral infarction without residual deficits; Z95.1 Presence of aortocoronary bypass graft; I25.10 Atherosclerotic heart disease of native coronary artery without angina pectoris; R91.1 Solitary pulmonary nodule

== ENCOUNTER 2020-09-17 20:10 | Inpatient (IN) | payer MEDICARE ==
[~2020-09-17] VITALS: Ht 162.6 cm; Wt 68.0 kg
[~2020-09-17 20:10] MED LIST changes: +ATROVENT 0.02%2.5 ML UPD
[2020-09-17 21:11] VITALS: BP 160/55; BMI 25.8
--- NOTE | 2020-09-17 23:31 | NUR ---
PT IN BED, NO IMMEDIATE NEEDS NOTED, FLUIDS/CL WITHIN REACH, PRECAUTIONS IN PLACE
[2020-09-18 07:32] LABS: BASOPHILS 0.9 % (0-2); EOSINOPHILS 4.3 % (0-7); HEMATOCRIT 31.9 % (36.0-48.0); HEMOGLOBIN 10.3 g/dL (12-16); LYMPHOCYTE ABS# 1.25 10x3/uL (1.18-3.74); LYMPHOCYTES 35.6 % (15-50); MCH 25.9 pg (26.0-34.0); MCHC 32.3 g/dL (31.0-37.0); MCV 80.2 fL (80.0-100.0); MEAN PLATELET VOLUME 10.2 fL (7.4-10.4); MONOCYTES 18.8 % (2-11); NEUTROPHIL ABS# 1.42 10x3/uL (1.56-6.13); NEUTROPHILS 40.4 % (40-80); PLATELET COUNT 303 10x3/uL (130-400); RBC 3.98 10x6/uL (4.00-5.40); RDW 18.4 % (11.5-14.5); WBC 3.5 10x3/uL (4.8-10.8)
[2020-09-18 07:40] LABS: CALC OSMOLALITY 273 mosm/kg (275-300); CALCIUM 9.2 mg/dL (8.5-10.1); CHLORIDE - SERUM 103 mmol/L (98-107); CREATININE - SERUM 0.6 mg/dL (0.6-1.3); GLUCOSE 93 mg/dL (74-106); POTASSIUM - SERUM 3.8 mmol/L (3.5-5.1); SODIUM 138 mmol/L (136-145); eGFR NON AFRICAN AMERICAN > 90 mL/min (90-120)
[2020-09-18 07:41] LABS: UREA NITROGEN 7 mg/dL (7-18)
[2020-09-18 08:14] VITALS: BP 151/90
[2020-09-18 13:18] VITALS: Ht 162.6 cm; Wt 68.0 kg
--- NOTE | 2020-09-18 19:50 | NUR ---
RECEIVED PATIENT LYING IN BED. ORIENTED TO SELF ONLY. CALM AND COOPERATIVE. DRESSING INTACT TO OLD CHEST TUBE SITE PER RIGHT FLANK. DENIES PAIN. CALL LIGHT WITHIN REACH. DENIES NEEDS.
--- NOTE | 2020-09-18 20:10 | NUR ---
ASSISTED TO BATHROOM. PATIENT WAS INCONTINENT BEFORE GETTING TO THE BATHROOM. ASSISTED TO TOILET AND DEPENDS CHANGED. BACK TO BED. CALL LIGHT WITHIN REACH. NO C/O VOICED.
[2020-09-18 20:36] VITALS: BP 150/67
--- NOTE | 2020-09-18 20:51 | NUR ---
HS MED ADMINISTERED WITHOUT DIFFICULTY. NO C/O VOICED. DENIES NEEDS. CALL LIGHT WITHIN REACH.
[2020-09-19 08:00] LABS: BASOPHILS 0.5 % (0-2); EOSINOPHILS 4.8 % (0-7); HEMATOCRIT 33.2 % (36.0-48.0); HEMOGLOBIN 10.6 g/dL (12-16); IMMATURE GRANULOCYTES 0.5 % (0-5); LYMPHOCYTE ABS# 1.71 10x3/uL (1.18-3.74); LYMPHOCYTES 39.2 % (15-50); MCH 25.6 pg (26.0-34.0); MCHC 31.9 g/dL (31.0-37.0); MCV 80.2 fL (80.0-100.0); MEAN PLATELET VOLUME 10.7 fL (7.4-10.4); MONOCYTES 16.7 % (2-11); NEUTROPHIL ABS# 1.67 10x3/uL (1.56-6.13); NEUTROPHILS 38.3 % (40-80); PLATELET COUNT 314 10x3/uL (130-400); RBC 4.14 10x6/uL (4.00-5.40); RDW 18.3 % (11.5-14.5)
[2020-09-19 08:06] LABS: WBC 4.4 10x3/uL (4.8-10.8)
[2020-09-19 08:11] VITALS: BP 132/54
[2020-09-19 08:11] LABS: CALC OSMOLALITY 271 mosm/kg (275-300); CALCIUM 9.2 mg/dL (8.5-10.1); CARBON DIOXIDE 28.2 mmol/L (21.0-32.0); CHLORIDE - SERUM 102 mmol/L (98-107); CREATININE - SERUM 0.7 mg/dL (0.6-1.3); GLUCOSE 105 mg/dL (74-106); POTASSIUM - SERUM 4.3 mmol/L (3.5-5.1); SODIUM 137 mmol/L (136-145); UREA NITROGEN 8 mg/dL (7-18); eGFR NON AFRICAN AMERICAN 83 mL/min (90-120)
--- NOTE | 2020-09-19 11:54 | NUR ---
RESTING QUIETLY IN BED. IS ORIENTED TO SELF ONLY. SLOW TO ANSWER AND RESPOND TO QUESTIONS. CNP STILL IN PLACE. RATE IS 90 CAF. IMPULSIVE TO GET UP. BED AND CHAIR ALARM IN PLACE. CALL LIGHT IN REACH
--- NOTE | 2020-09-19 20:00 | NUR ---
PATIENT RECEIVED LAYING IN BED. ASSESSMENT & VITAL SIGNS DONE. ALARM ON. CALL LLIGHT WITHIN REACH. WILL CONTINUE TO MONITOR.
[2020-09-19 21:20] VITALS: BP 137/86
--- NOTE | 2020-09-20 02:15 | NUR ---
ON ROUNDS PATIENT AWAKEIN LOW BED. ALARM ON. CALL LIGHT & BEDSIDE TABLE WITHIN REACH. WILL CONTINUE TO MONITOR.
[2020-09-20 08:00] VITALS: BP 142/77
--- NOTE | 2020-09-20 08:00 | NUR ---
PT RESTING IN BED WITH EYES OPEN CALL LIGHT IN REACH NO PROBLEMS WILL MONITER
[2020-09-20 12:18] LABS: CKMB 0.6 U/L (0.0-3.6); CREATINE KINASE 30 UL (21-215); TROPONIN-I < 0.017 ng/mL (0.000-0.060)
--- NOTE | 2020-09-20 18:13 | NUR ---
PT RESTING IN BED WITH EYES OPEN CALL LIGHT IN REACH NO PROBLEMS WILL MONITER
[2020-09-20 19:00] VITALS: BP 111/64
--- NOTE | 2020-09-20 20:11 | NUR ---
PATIENT RECEIVED LAYING IN BED. ASSESSMENT & VITAL SIGNS DONE. NO C/O PAIN OR DISTRESS AT THIS TIME. BED LOW. ALARM ON. CALL LIGHT WITHIN REACH. WILL CONTINUE TO MONITOR.
--- NOTE | 2020-09-21 02:15 | NUR ---
PATIENT ALARM SOUNDING. PATIENT OUT OF BED & WALKING TO BATHROOM. VOID ONLY. RETURNED TO LOW BED. ALARM ON. CALL LIGHT & BEDSIDE TABLE WITHIN REACH. WILL CONTINUE TO MONITOR.
--- NOTE | 2020-09-21 02:42 | NUR ---
I have reviewed this patient and I concur with the Shift Assessment completed by the Licensed Practical Nurse today this shift.
--- NOTE | 2020-09-21 07:38 | NUR ---
PT RESTING IN BED WITH EYES OPEN CALL LIGHT IN REACH WILL MONITER
[2020-09-21 08:00] VITALS: BP 107/70
--- NOTE | 2020-09-21 17:46 | NUR ---
PT RESTIGNG IN BED WITH EYES OPEN CALL LIGHT IN REACH NO PROBLEMS WILL MONITER
[2020-09-21 19:00] VITALS: BP 134/89
--- NOTE | 2020-09-21 19:50 | NUR ---
PATIENT RECEIVED LAYING IN BED. ALARM ON. ASSESSMENT & VITAL SIGNS DONE. DENTURES IN CUP. CALL LIGHT & BEDSIDE TABLE WITHIN REACH. WILL CONTINUE TO MONITOR.
--- NOTE | 2020-09-22 03:00 | NUR ---
HEARD ALARM SOUNDING FOUND PT UP OOB WALKING TO DOOR, PT CONFUSED, PT STATES SHE WAS TRYING TO GO TURN OFF HALLWAY LIGHT. REORIENTED PT TO PLACE AND SITUATION. INCONTINENCE CARE PROVIDED WITH ASSIST FROM MICHELLE ROLON. ASSISTED PT BACK TO BED POSITIONED ON LEFT SIDE. NO OTHER NEEDS VOICED, DENIES PAIN. CALL LIGHT WITHIN REACH. HEATHER ALARM ON
--- NOTE | 2020-09-22 03:27 | NUR ---
I have reviewed this patient and I concur with the Shift Assessment completed by the Licensed Practical Nurse today this shift.
[2020-09-22 07:57] VITALS: BP 143/79
--- NOTE | 2020-09-22 08:06 | NUR ---
SHE IS WORKING WITH PT. SHE TOOK HER MEDICAITONS WITHOUT ANY PROBLEMS.
[2020-09-22 08:17] LABS: BASOPHILS 0.5 % (0-2); EOSINOPHILS 2.2 % (0-7); HEMATOCRIT 35.8 % (36.0-48.0); HEMOGLOBIN 11.4 g/dL (12-16); IMMATURE GRANULOCYTES 0.2 % (0-5); LYMPHOCYTES 36.1 % (15-50); MCH 25.4 pg (26.0-34.0); MCHC 31.8 g/dL (31.0-37.0); MCV 79.7 fL (80.0-100.0); MEAN PLATELET VOLUME 10.6 fL (7.4-10.4); MONOCYTES 15.9 % (2-11); NEUTROPHIL ABS# 1.88 10x3/uL (1.56-6.13); NEUTROPHILS 45.1 % (40-80); PLATELET COUNT 327 10x3/uL (130-400); RBC 4.49 10x6/uL (4.00-5.40); RDW 18.2 % (11.5-14.5); WBC 4.2 10x3/uL (4.8-10.8)
[2020-09-22 08:30] LABS: ANION GAP 11.8 mmol/L (8-16); CALCIUM 9.2 mg/dL (8.5-10.1); CARBON DIOXIDE 28.7 mmol/L (21.0-32.0); CREATININE - SERUM 0.8 mg/dL (0.6-1.3); POTASSIUM - SERUM 3.5 mmol/L (3.5-5.1)
--- NOTE | 2020-09-22 10:50 | NUR ---
Nutrition Follow-up: Diet: Regular + Ensure TID PO intake: 50% Last BM: 09/21/20 Wt: 150# (09/18/20) Meds noted: micro-k, lasix Labs noted Recommend continue current diet and oral nutrition supplement. RD will re-assess 09/24/20.
--- NOTE | 2020-09-22 13:34 | NUR ---
CLINICAL UPDATES FAXED TO [facility] AT , AUTH. # [id number] REQUESTING EXTENSION OF STAY. WILL CONTINUE TO FOLLOW WITH PATIENT.
--- NOTE | 2020-09-22 14:30 | NUR ---
TELE TAKEN OFF AND RETURNED TO ICU VIA [facility] OUR PCP.
--- NOTE | 2020-09-22 19:41 | NUR ---
PT IN BED WATCHING TV, NO IMMEDIATE NEEDS NOTED OR VERBALIZED, FLUIDS/CL WITHIN REACH, FALL PRECAUTIONS IN PLACE
[2020-09-22 19:58] VITALS: BP 103/84
[2020-09-23 07:34] VITALS: BP 122/65
--- NOTE | 2020-09-23 07:38 | NUR ---
SHE IS SLEEPING, WAKES UP TO MY VOICE. SHE HAS TURNED TO THE RIGHT SIDE IN THE BED. SHE DENIES ANY NEEDS, STATES "I HOPE I SLEEP GOOD TONIGHT". THE CALL LIGHT IS WITHIN REACH AND THE BED ALARM IS ON.
--- NOTE | 2020-09-23 19:54 | NUR ---
AWAKE AND ALERT. RESTING IN BED WITH RESPIRATIONS UNLABORED. NO DISTRESS NOTED. CALL LIGHT IN REACH.
[2020-09-23 19:58] VITALS: BP 125/79
--- NOTE | 2020-09-24 04:55 | NUR ---
QUIET HOURS. NO ACUTE CHANGES IN CONDITION THIS SHIFT. UP IN WHEELCHAIR DUE TO C/O BEING TIRED OF BEING IN BED AND BACK HURTING. CHAIR ALARM ON. NO DISTRESS NOTED.
[2020-09-24 07:36] LABS: BASOPHILS 0.6 % (0-2); EOSINOPHILS 2.1 % (0-7); HEMATOCRIT 31.8 % (36.0-48.0); HEMOGLOBIN 10.2 g/dL (12-16); IMMATURE GRANULOCYTES 0.2 % (0-5); LYMPHOCYTE ABS# 1.26 10x3/uL (1.18-3.74); MCH 25.8 pg (26.0-34.0); MCHC 32.1 g/dL (31.0-37.0); MCV 80.3 fL (80.0-100.0); MEAN PLATELET VOLUME 10.6 fL (7.4-10.4); MONOCYTES 18.4 % (2-11); NEUTROPHIL ABS# 2.41 10x3/uL (1.56-6.13); NEUTROPHILS 51.7 % (40-80); PLATELET COUNT 315 10x3/uL (130-400); RBC 3.96 10x6/uL (4.00-5.40); RDW 18.1 % (11.5-14.5); WBC 4.7 10x3/uL (4.8-10.8)
[2020-09-24 07:51] VITALS: BP 99/58
[2020-09-24 07:51] LABS: CALC OSMOLALITY 279 mosm/kg (275-300); CARBON DIOXIDE 31.7 mmol/L (21.0-32.0); CHLORIDE - SERUM 103 mmol/L (98-107); CREATININE - SERUM 0.7 mg/dL (0.6-1.3); GLUCOSE 120 mg/dL (74-106); POTASSIUM - SERUM 3.5 mmol/L (3.5-5.1); SODIUM 140 mmol/L (136-145); UREA NITROGEN 12 mg/dL (7-18); eGFR NON AFRICAN AMERICAN 83 mL/min (90-120)
--- NOTE | 2020-09-24 08:00 | NUR ---
PATIENT SITTING UP IN BED TO EAT BREAKFAST. VERY CONFUSED. BED ALARM ON. CALL LIGHT WITHIN REACH. VOICES NO NEEDS. WILL CONTINUE WITH PLAN OF CARE
--- NOTE | 2020-09-24 10:05 | NUR ---
PATIENT WORKING WITH PHYSICAL THERAPIST. WALKING IN HALLWAY WITH WHEELED WALKER.
--- NOTE | 2020-09-24 14:02 | NUR ---
Nutrition Re-Assessment Diet: Regular + Ensure TID PO intake: ~43% average x last 9 meals. Discussed with MACHINE HOSE CUTTER at team meeting. MACHINE HOSE CUTTER gave RD a list of likes and dislikes for the patient that patient's daughter had given to MACHINE HOSE CUTTER. Spoke with patient at bedside but she did not say much. She did say that her appetite is "not too hot." States that she likes Ensure and drinks vanilla or strawberry when they come on her meal trays. Last BM: 09/21/20 Wt: 150# (09/18/20) Meds noted: micro-k, lasix Labs noted: Glu 120(H) Estimated nutrition needs: 1089-5004 roma (25-30 IBW), 55-65gms protein (1-1.2), 1375-1625mL fluid (or per MD) Nutrition diagnosis: Inadequate energy intake r/t inadequate oral intake AEB PO intake <50% average. Nutrition goals: -PO intake will increase to >65% -Dry weight stable DHS Recommendations/Interventions: -Recommend continue Regular diet. Will update diet order with food preferences. Will continue to honor food preferences. -Continue oral nutrition supplments TID. -RD will follow-up within 7 days.
--- NOTE | 2020-09-24 14:37 | NUR ---
CHAIR ALARM WENT OFF. PATIENT HELPED INTO BATHROOM. INCONT OF URINE. BRIEF CHANGED. [facility] CARE GIVEN
--- NOTE | 2020-09-24 15:00 | NUR ---
I have reviewed this patient and I concur with the Shift Assessment completed by the Licensed Practical Nurse today this shift.
--- NOTE | 2020-09-24 18:57 | NUR ---
BEDSIDE REPORT COMPLETE. RECIEVED PT LYING IN BED EYES CLOSED RESTING. EASILY AROUSED WITH STIMULI. ALERT TO SELF. DENIES ANY NEEDS OR PAIN. NO DISTRESS NOTED. NO IV OR OXYGEN. CALL LIGHT AND WATER WITHIN REACH. HEATHER ALARM ON. CPOC
[2020-09-24 21:24] VITALS: BP 114/60
--- NOTE | 2020-09-25 02:10 | NUR ---
HEARD HEATHER ALARM SOUNDING, FOUND PT UP ATTEMPTING TO FIND RESTROOM. ASSISTED PT TO RESTROOM WITH MIN ASSIST. CHANGED SOILED BRIEF. ASSISTED BACK TO BED WITH MIN ASSIST. POSITIONED IN BED ON LEFT SIDE. DENIES ANY OTHER NEEDS OR PAIN. CALL LIGHT WITHIN REACH. HEATHER ALARM ON.
[2020-09-25 07:42] VITALS: BP 151/70
--- NOTE | 2020-09-25 15:16 | NUR ---
SITTING UP IN BED. STILL IMPULSIVE TO GET OUT OF BED BY SELF. BED AND CHAIR ALARMS IN PLACE. SHE CAN BE ASSISTED TO WHERE SHE IS GOING BUT USUALLY CAN NOT BE REDIRECTED TILL HER GOAL IS ACCOMPLISHED. SHE REMAINS CONFUSED. CALL LIGHT IN REACH
--- NOTE | 2020-09-25 18:47 | NUR ---
BEDSIDE REPORT COMPLETE. RECEIVED PT LYING IN BED ON RIGHT SIDE EYES CLOSED RESTING. EASILY AROUSED WITH STIMULI. DENIES ANY NEEDS OR PAIN. NO DISTRESS NOTED. CALL LIGHT AND WATER WITHIN REACH. CPOC
[2020-09-25 20:42] VITALS: BP 110/68
--- NOTE | 2020-09-26 00:06 | NUR ---
HEARD HEATHER ALARM SOUNDING FOUND PT SITTING UP ON SIDE OF BED ATTEMPTING TO GET UP OOB. ASSISTED PT TO RESTROOM WITH MIN ASSIST. CHANGED SOILED BRIEF. PT BACK IN BED ON LEFT SIDE. CALL LIGHT WITHIN REACH. HEATHER ALARM ON
--- NOTE | 2020-09-26 04:54 | NUR ---
PT LYING IN BED ON RIGHT SIDE EYES CLOSED RESTING. RR EVEN AND UNLABORED. NO ACUTE CHANGES IN CONDITION THIS SHIFT. CALL LIGHT WITHIN REACH. HEATHER ALARM ON.
[2020-09-26 07:02] LABS: BASOPHILS 0.4 % (0-2); EOSINOPHILS 1.7 % (0-7); HEMOGLOBIN 9.9 g/dL (12-16); IMMATURE GRANULOCYTES 0.2 % (0-5); LYMPHOCYTE ABS# 1.46 10x3/uL (1.18-3.74); LYMPHOCYTES 31.1 % (15-50); MCH 25.4 pg (26.0-34.0); MCHC 31.9 g/dL (31.0-37.0); MCV 79.7 fL (80.0-100.0); MEAN PLATELET VOLUME 10.5 fL (7.4-10.4); MONOCYTES 17.3 % (2-11); NEUTROPHIL ABS# 2.31 10x3/uL (1.56-6.13); NEUTROPHILS 49.3 % (40-80); PLATELET COUNT 311 10x3/uL (130-400); RBC 3.89 10x6/uL (4.00-5.40); RDW 17.8 % (11.5-14.5); WBC 4.7 10x3/uL (4.8-10.8)
[2020-09-26 07:21] LABS: CALC OSMOLALITY 275 mosm/kg (275-300); CARBON DIOXIDE 29.7 mmol/L (21.0-32.0); CHLORIDE - SERUM 102 mmol/L (98-107); CREATININE - SERUM 0.6 mg/dL (0.6-1.3); GLUCOSE 96 mg/dL (74-106); POTASSIUM - SERUM 3.6 mmol/L (3.5-5.1); SODIUM 138 mmol/L (136-145); UREA NITROGEN 12 mg/dL (7-18); eGFR NON AFRICAN AMERICAN > 90 mL/min (90-120)
[2020-09-26 07:26] VITALS: BP 136/69
--- NOTE | 2020-09-26 15:39 | NUR ---
LAYING IN BED RESTING QUIETLY. EYES CLOSED. NO S/S DISTRESS. REMAINS CONFUSED BUT COOPERATIVE TO SIMPLE ONE STEP COMMANDS. SHE IS STILL IMPULSIVE TO GET OUT OF BED AND WALK BY SELF. BED AND CHAIR ALARM IN PLACE. APPETITE POOR. CALL LIGHT IN REACH
[2020-09-26 19:00] VITALS: BP 108/68
--- NOTE | 2020-09-26 19:37 | NUR ---
AWAKE AND ALERT. RESITNG IN BED WITH RESPIRATIONS UNLABORED. NO DISTRESS NOTED. CALL LIGHT IN REACH.
--- NOTE | 2020-09-27 05:43 | NUR ---
QUIET HOURS. NO ACUTE CHANGES IN CONDITION THIS SHIFT. RESTING IN BED WITH NO DISTRESS NOTED. CALL LIGHT IN REACH.
[2020-09-27 07:00] VITALS: BP 106/68
[2020-09-27 19:00] VITALS: BP 111/51
--- NOTE | 2020-09-27 19:19 | NUR ---
AWAKE AND ALERT. RESTING IN BED WITH RESPIRATIONS UNLABORED. NO DISTRESS NOTED. CALL LIGHT IN REACH.
--- NOTE | 2020-09-28 05:41 | NUR ---
QUIET HOURS. NO ACUTE CHANGES IN CONDITION THIS SHIFT. RESTING IN BED WITH NO DISTRESS NOTED. CALL LIGHT IN REACH.
[2020-09-28 07:00] VITALS: BP 119/66
--- NOTE | 2020-09-28 08:00 | NUR ---
SHIFT ASSMT COMPLETED.
--- NOTE | 2020-09-28 12:00 | NUR ---
EATING LUNCH.VISITING WITH FAMILY
--- NOTE | 2020-09-28 14:54 | NUR ---
WILL CONTINUE WITH POC
[2020-09-28 19:00] VITALS: BP 158/65
--- NOTE | 2020-09-28 19:31 | NUR ---
AWAKE AND ALERT. REMAINS CONFUSED TO TIME AND SITUATION. ASSISTED TO BATHROOM. HAD A LARGE BM. ASSISTED BACK TO BED. RESPIRATIONS UNLABORED. CALL LIGHT IN REACH.
--- NOTE | 2020-09-29 05:05 | NUR ---
SLEPT ON AND OFF THIS SHIFT. UP AND DOWN IMPULSIVELY. NO ACUTE CHANGES IN CONDITION THIS SHIFT. RESTING IN BED WITH RESPIRATIONS UNLABORED. NO DISTRESS NOTED. CALL LIGHT IN REACH.
[2020-09-29 06:49] LABS: BASOPHILS 0.6 % (0-2); EOSINOPHILS 2.6 % (0-7); HEMATOCRIT 31.1 % (36.0-48.0); HEMOGLOBIN 9.9 g/dL (12-16); IMMATURE GRANULOCYTES 0.2 % (0-5); LYMPHOCYTE ABS# 1.51 10x3/uL (1.18-3.74); LYMPHOCYTES 29.7 % (15-50); MCH 25.3 pg (26.0-34.0); MCHC 31.8 g/dL (31.0-37.0); MCV 79.5 fL (80.0-100.0); MEAN PLATELET VOLUME 10.8 fL (7.4-10.4); MONOCYTES 16.7 % (2-11); NEUTROPHIL ABS# 2.56 10x3/uL (1.56-6.13); NEUTROPHILS 50.2 % (40-80); PLATELET COUNT 293 10x3/uL (130-400); RBC 3.91 10x6/uL (4.00-5.40); RDW 17.7 % (11.5-14.5); WBC 5.1 10x3/uL (4.8-10.8)
[2020-09-29 07:00] LABS: CALC OSMOLALITY 274 mosm/kg (275-300); CALCIUM 8.8 mg/dL (8.5-10.1); CARBON DIOXIDE 29.1 mmol/L (21.0-32.0); CHLORIDE - SERUM 103 mmol/L (98-107); CREATININE - SERUM 0.6 mg/dL (0.6-1.3); GLUCOSE 79 mg/dL (74-106); POTASSIUM - SERUM 3.7 mmol/L (3.5-5.1); SODIUM 138 mmol/L (136-145); UREA NITROGEN 13 mg/dL (7-18); eGFR NON AFRICAN AMERICAN > 90 mL/min (90-120)
[2020-09-29 07:55] VITALS: BP 116/56
--- NOTE | 2020-09-29 12:29 | NUR ---
SITTING UP IN BED FOR LUNCH. IS CONFUSED BUT COOPERATIVE. DENIES PAIN. STILL IMPULSIVE TO GET OUT OF BED OR LEAN OVER IN WC TOWARD FEET. BED AND CHAIR ALARMS IN PLACE FOR SAFETY. CALL LIGHT IN REACH
--- NOTE | 2020-09-29 18:55 | NUR ---
BEDSIDE REPORT COMPLETE. RECEIVED PT LYING IN BED ON RIGHT SIDE EYES CLOSED RESTING. NO DISTRESS NOTED. EASILY AROUSED WITH VERBAL STIMULI. DENIES ANY PAIN. NO IV OR OXYGEN NOTED. CALL LIGHT AND WATER WITHIN REACH. HEATHER ALARM ON. CPOC
[2020-09-29 19:37] VITALS: BP 106/70
--- NOTE | 2020-09-30 01:26 | NUR ---
PT LYING IN BED ON RIGHT SIDE EYES CLOSED RESTING. RR EVEN AND UNLABORED. CALL LIGHT WITHIN REACH. HEATHER ALARM ON
--- NOTE | 2020-09-30 05:09 | NUR ---
PT LYING IN BED ON RIGHT SIDE AWAKE. TOILETING OFFERED PT DENIES NEED. BRIEF CLEAN AND DRY. CALL LIGHT AND WATER WITHIN REACH. HEATHER ALARM ON
[2020-09-30 07:31] VITALS: BP 132/68
--- NOTE | 2020-09-30 10:47 | NUR ---
SITTING IN WC IN ROOM. BED AND CHAIR ALARM IN PLACE FOR SAFETY. REMAINS CONFUSED AND IMPULSIVE. SHE CAN NOT FIND THE BATHROOM IN HER ROOM AT TIMES. CALL LIGHT IN REACH
--- NOTE | 2020-09-30 15:19 | NUR ---
Nutrition Re-Assessment Diet: Regular [employer] + Ensure TID PO intake: ~35% average Last BM: 09/29/20 Wt: 150# (09/18/20) Meds noted: micro-k, lasix Labs reviewed Estimated nutrition needs: 6815-2491 roma (25-30 IBW), 55-65gms protein (1-1.2), 1375-1625mL fluid (or per MD) Nutrition diagnosis: Inadequate energy intake r/t inadequate oral intake AEB PO intake <50% average. Nutrition goals: -PO intake will increase to >65% meals -Meet fluid needs -Stable weight DHS Recommendations/Interventions: -Needs new weight -Recommend continue current diet. Will continue to honor food preferences. -Continue oral nutrition supplements TID. -MD may consider adding appetite stimulant if PO intake does not begin to improve. -RD will follow-up 10/02/20.
--- NOTE | 2020-09-30 18:47 | NUR ---
BEDSIDE REPORT COMPLETE. RECEIVED PT LYING IN BED ON RIGHT SIDE EYES CLOSED RESTING. RR EVEN AND UNLABORED. NO DISTRESS NOTED. EASILY AROUSED WITH STIMULI. DENIES ANY NEEDS OR PAIN. CALL LIGHT AND WATER WITHIN REACH. HEATHER ALARM ON. CPOC
[2020-09-30 20:09] VITALS: BP 115/57
--- NOTE | 2020-10-01 02:38 | NUR ---
PT LYING IN BED ON RIGHT SIDE EYES CLOSED RESTING. RR EVEN AND UNLABORED. CALL LIGHT WITHIN REACH. HEATHER ALARM ON
[2020-10-01 06:00] LABS: EOSINOPHILS 2.4 % (0-7); HEMATOCRIT 29.8 % (36.0-48.0); HEMOGLOBIN 9.5 g/dL (12-16); LYMPHOCYTES 31.7 % (15-50); MCH 25.3 pg (26.0-34.0); MCV 79.1 fL (80.0-100.0); MEAN PLATELET VOLUME 8.8 fL (7.4-10.4); MONOCYTES 17.2 % (2-11); NEUTROPHILS 47.7 % (40-80); PLATELET COUNT 265 10x3/uL (130-400); RBC 3.77 10x6/uL (4.00-5.40); RDW 18.3 % (11.5-14.5); WBC 4.7 10x3/uL (4.8-10.8)
[2020-10-01 06:16] LABS: CALC OSMOLALITY 277 mosm/kg (275-300); CALCIUM 9.1 mg/dL (8.5-10.1); CHLORIDE - SERUM 103 mmol/L (98-107); CREATININE - SERUM 0.7 mg/dL (0.6-1.3); GLUCOSE 90 mg/dL (74-106); POTASSIUM - SERUM 3.4 mmol/L (3.5-5.1); SODIUM 139 mmol/L (136-145); UREA NITROGEN 13 mg/dL (7-18); eGFR NON AFRICAN AMERICAN 83 mL/min (90-120)
--- NOTE | 2020-10-01 08:00 | NUR ---
SHIFT ASSMT COMPLETED.
[2020-10-01 08:09] VITALS: BP 135/83
--- NOTE | 2020-10-01 15:31 | NUR ---
CARE TEAM MEETING: PATIENT DISCHARGING HOME 10/02/20 WITH HER DAUGHTER SOL. [employer] [facility] WILL PROVIDE THERAPY AT HOME. ELSY SIGNED, IMM SERVED AND EXPLAINED, ONE GIVEN TO PATIENT AND ONE FILED IN CHART. JOSE KENNEY 10/23/20 @ 2;00, [place] 10/23/20 @ 10:30, DR. ROSALIND CAMPBELL 10/08/20 @ 9:00. NO COMPARE DATA REVIEWED PER DAUGHTER REQUEST. DISCHARGE INSTRUCTIONS FAXED TO PCP, [facility] , AUTH. # [id number] AND REVIEWED WITH DAUGHTER.
--- NOTE | 2020-10-01 16:00 | NUR ---
RESTING QUIETLY.PLAN TO DC HOME TOMORROW
--- NOTE | 2020-10-01 19:33 | NUR ---
AWAKE AND ALERT. SOME CONFUSION. RESPIRATIONS UNLABORED. NO DISTRESS NOTED. CALL LIGHT IN REACH.
[2020-10-01 20:05] VITALS: BP 112/56
--- NOTE | 2020-10-02 04:59 | RHP ---
PATIENT: AMINAH AYALA MEDICAL RECORD: [id number] ACCOUNT: [id number] LOCATION:[id number] : 32 ADMISSION DATE: 09/17/20 REHABILITATION HISTORY AND PHYSICAL EXAMINATION POST ADMISSION PHYSICIAN EXAMINATION ADMITTING DIAGNOSIS: Critical illness myopathy. HISTORY OF PRESENT ILLNESS: The patient is an 89-year-old female who presents secondary to critical illness myopathy. The patient arrived in the ED on 09/01/2020 with chest pain. She was brought in by family. Initial imaging showed a large right-sided pneumothorax. Chest tube was placed at that time. She denied any recent trauma. The patient was placed in the hospital with chest tube management. The patient was placed on electrolyte protocol throughout her stay. Medications were adjusted. Pulmonary saw her, felt that they should do a trial with a chest tube in room air and recheck x-rays as needed. The patient had a cardiovascular and thoracic consult done also, because she was complaining of right chest pain and dyspnea. The patient ended up having a right tube thoracostomy with Dr. Freitas secondary to recurrent pneumothorax. The patient did well with this. We are still continuing to monitor on telemetry at this time. She was reliant on her granddaughter for transportation and grocery shopping. She also has been seen by OT. She is mod assist for bed mobility, functional transfers, lower extremity dressing and bathroom use. The patient is noted that she does have to have a couple of steps to get up to a facility to be a safe discharge home. We will monitor her labs throughout her stay. Monitor any medication adjustments. Monitor pain control. She has got decreased activity tolerance, decreased strength, proximal muscle weakness, balance deficits, decreased range of motion, gait disturbance, impaired mobility and high fall risk. These are all barriers to her discharge home. She will be discharged home hopefully at her prior level of functioning. COMORBIDITIES: Include acute respiratory failure, atrial fib, altered mental status, chest pain, chronic AFib, chronic anemia, decrease in physical function, difficulty walking, fatigue, hypertension, low albumin, electrolyte abnormalities. PAST MEDICAL HISTORY: Significant for CVA, chronic AFib. She got hypertension, history of coronary artery disease with coronary artery bypass grafting, CHF. PAST SURGICAL HISTORY: Includes coronary artery bypass grafting, hysterectomy and previous knee surgery. ALLERGIES: PENICILLIN, TOBRAMYCIN, LOSARTAN AND MELOXICAM. CURRENT MEDICATIONS: Include metoprolol 12.5 mg b.i.d., Xarelto 10 mg daily, potassium 10 mEq daily, Lasix 40 mg daily, atorvastatin 40 mg daily, Tylenol 500 mg every 6 hours and Atrovent updrafts. HABITS: No alcohol or tobacco use. FAMILY HISTORY: Noncontributory. SOCIAL HISTORY: The patient hopes to return back home and get back to her prior level of functioning. HISTORY AND PHYSICAL [id number] AMINAH AYALA REVIEW OF SYSTEMS: GENERAL: Does complain of some weakness and fatigue. HEENT: Denies cold, cough or congestion. CARDIOVASCULAR: Denies any chest pain at this time. LUNGS: Does complain of some shortness of breath. PHYSICAL EXAMINATION: VITAL SIGNS: Stable. She is afebrile. GENERAL: An elderly female in no acute distress upon exam. HEENT: Normocephalic and atraumatic. Mucosa moist. NECK: Supple with no lymphadenopathy. LUNGS: Clear in the upper ing[place]. HEART: Irregular rate and rhythm. ABDOMEN: Soft, benign, nondistended. Positive bowel sounds times 4. EXTREMITIES: No clubbing, cyanosis or edema. NEUROLOGIC: She does have some weakness. LABORATORY DATA: White count is 3.5, H&H of 10.3 and 31.9 and platelet count is 303. Her sodium is 138, potassium 3.8, BUN and creatinine of 7 and 0.6 and blood sugar is noted to be 93. ASSESSMENT: This is an 89-year-old female patient admitted to the rehab with a working diagnosis of critical illness myopathy. The patient has potential to make improvement. We instituted the following multidisciplinary therapies include, but not limited to physical, occupation, respiratory, speech, nutritional services, prosthetics and orthotics. Given her complex medical condition and risks for complications, rehabilitation services cannot be provided at a low level of care such as senior care facility. PLAN: 1. Admit to [facility] for inpatient therapy to include the following disciplines; A. Physical therapy to improve gait, all transfer skills and bed mobility to a modified independent level. B. Occupational therapy to improve activities of daily living. C. Case management to help with discharge planning and placement options. D. Nutrition to assist with nutritional needs. E. Rehabilitation nursing to assist in monitoring the patient's underlying medical condition and to assist with any type of bowel or bladder management. 2. The patient's current medications and Medicare will be continued. 3. The patient will be placed on standard fall precautions. 4. The patient's estimated length of stay is approximately 7-10 days. 5. Discuss this patient during care team staff meeting this week. TRANSINT:[id number] Voice Confirmation ID: [id number] DOCUMENT ID: [id number] 09/26/2020 yinka TOMLINSON notes whether there has been none or any medical/functional change since admission: - No change since preadmission screen. DAVI attests patient continues to be appropriate for IRF: - Continues to be appropriate. HISTORY AND PHYSICAL [id number] AMINAH AYALA JOHN SCOTT MD at 0459 CC: [id number] DICTATION DATE: 09/18/20 0858 DONOR RECRUITMENT MANAGER: 09/18/20 0944 ADM IN [facility] [address] [place] [address]
--- NOTE | 2020-10-02 05:00 | NUR ---
QUIET HOURS. NO ACUTE CHANGES IN CONDITION THIS SHIFT. RESTING IN BED WITH NO DISTRESS NOTED.
[2020-10-02 07:32] VITALS: BP 112/62
--- NOTE | 2020-10-02 08:00 | NUR ---
SHIFT ASSMT COMPLETED.CL IN REACH. PLAN TO DC HOME TODAY.
--- NOTE | 2020-10-02 12:00 | NUR ---
REVIEWED MEDS AND APPTS & HOME HEALTH WITH DAUGHTER.DC'D HOME IN STABLE CONDITION.
== END 2020-10-02 12:00 | disposition home health service (06) | DRG 91 ==
LOC: D.REHAB 20:10
PROVIDERS: ADMIT Emergency Medicine; ATTEND Emergency Medicine
DX: G72.81 Critical illness myopathy (principal); J96.00 Acute respiratory failure, unspecified whether with hypoxia or hypercapnia; I48.20 Chronic atrial fibrillation, unspecified; I50.22 Chronic systolic (congestive) heart failure; J93.9 Pneumothorax, unspecified; R07.9 Chest pain, unspecified; R26.2 Difficulty in walking, not elsewhere classified; R53.83 Other fatigue; D64.9 Anemia, unspecified; E87.8 Other disorders of electrolyte and fluid balance, not elsewhere classified; I11.0 Hypertensive heart disease with heart failure; E87.6 Hypokalemia; E83.51 Hypocalcemia

== ENCOUNTER → 2020-10-23 15:10 | Outpatient (CLI) | payer MEDICARE ==
[2020-09-18 13:18] VITALS: BMI 25.7
== END | disposition home or self-care (01) ==
LOC: D.RAD 15:10
PROVIDERS: ATTEND Internal Medicine Pulmonary Disease
DX: Z87.09 Personal history of other diseases of the respiratory system (principal)